=== PATIENT | male | born 1975 | race Caucasian/White ===

== ENCOUNTER 2024-04-20 11:22 | Emergency (ER) | payer OTHER, SELFPAY ==
--- NOTE | ~2024-04-20 | XR_ITS ---
CLINICAL HISTORY: pain s p fall 3 view left wrist Comparison: None Findings: Comminuted impacted intra-articular fracture of the distal radius associated with apex volar angulation and mild dorsal displacement. Chronic fracture of the ulnar styloid process versus accessory ossicle with mild associated degenerative changes. IMPRESSION: Comminuted impacted intra-articular fracture of the distal radius associated with apex volar angulation and mild dorsal displacement. This document has been electronically signed by: Ruben Bourne DO on 04/20/2024 12:33:15
--- NOTE | ~2024-04-20 | XR_ITS ---
CLINICAL HISTORY: Post reduction 2 view left hand Comparison: CR - XR WRIST LT MIN 3V - 04/20/24 12:03 EST Findings: Mildly comminuted fracture of the distal radius with mild impaction and mild posterior angulation. Interval improvement in alignment and position of fracture fragments since the prior study. Chronic nonunited ulnar styloid avulsion fracture. No dislocation. A cast is present. No significant loss of joint space or osteophytes. No erosions. No radiopaque foreign body. IMPRESSION: Mildly comminuted fracture of the distal radius with mild impaction and mild posterior angulation. Interval improvement in alignment and position of fracture fragments since the prior study. This document has been electronically signed by: Ana María Mendes MD on 04/20/2024 14:22:29
--- NOTE | 2024-04-20 11:27 | ED_ITS ---
HPI - Extremity Injury (Upper) General Chief Complaint: Extremity Injury, Upper Stated Complaint: l wrist inj at work Time Seen by Provider: 04/20/24 11:58 History of Present Illness HPI narrative: Patient complains of left wrist pain swelling and deformity after a slip and fall on the ice onto his outstretched hand which happened while he was at work this morning No head strike no neck pain no back pain no numbness no weakness no tingling no other extremity pains, only complaint is left wrist no other injury Related Data Home Medications ?Medication ?Instructions ?Recorded ?Confirmed thiamine HCl (vitamin B1) 100 mg 100 mg PO DAILY 12/29/20 02/16/21 tablet (Vitamin B-1) Previous Rx's ?Medication ?Instructions ?Recorded fluoxetine 40 mg capsule 40 mg PO DAILY 90 days #90 caps 02/04/22 oxycodone 5 mg tablet 5 mg PO Q6H PRN pain #20 tabs 04/20/24 Allergies Allergy/AdvReac Type Severity Reaction Status Date / Time Sulfa (Sulfonamide Allergy Intermediate RASH, hives Verified 04/20/24 11:30 Antibiotics) [SULFA (SULFONAMIDE ANTIBIOTICS)] Sulfamethoxazole Allergy Unknown RASH Uncoded 04/20/24 11:30 PMFSH Past Medical History Source: nursing notes reviewed Medical History Anxiety and depression GERD (gastroesophageal reflux disease) Family History Family History Father Liver failure Diabetes Mother Colon cancer Other Mental health disorder Substance use disorder Social History Social History Housing: House Alcohol intake: current Alcohol intake frequency: a few times a week Patient Tobacco Use Status: Former Tobacco user Tobacco use type: Cigarette Years Smoked: 16 years Advance Directives: No Advance Directives Information Provided: Yes Do you have a plan to hurt others: No Plan Current occupational status: employed Physical Exam Vital Signs: Vital Signs: Last Vital Signs Temp 98 F 04/20/24 11:28 Pulse 70 04/20/24 11:28 Resp 20 04/20/24 12:32 BP 144/90 H 04/20/24 11:28 Pulse Ox 99 04/20/24 11:28 O2 Del Method Room Air 04/20/24 11:28 BMI result Body Mass Index 27.4 General appearance is no acute distress, but uncomfortable Head is normocephalic atraumatic Neck is supple Respiratory no distress Extremities the left wrist is deformed swollen tender, neurovascular intact distal he can flex and extend his fingers Other extremities normal Neuro no focal motor sensory deficits Skin no lacerations or break in the skin Course Course Course Narrative: This is an RME: Additional HPI, ROS, PE not included below will be deferred to primary provider. RME assessment and note performed by: Camille Talamantes PA-C This is a 15-veyz-[id number]-male, with no known medical problems, who is here s/p mechanical fall which occurred just [employer]. Pt slipped and fell at work and landed on his out stretch hand. No LOC, no head strike. Obviously deformed left wrist. Good radial pulse. Plan: Xray left wrist X-ray showed a comminuted impacted intra-articular fracture of distal radius with volar angulation and dorsal displacement Patient was given morphine which relieved his pain, hematoma block was placed and attempt at reduction was tried but alignment was not anatomic after reduction attempt Patient will follow with Orthopedics, I did text Dr. Acuña who said she can see the patient in the office he will call tomorrow morning Medications Administered Discontinued Medications Generic Name Dose Route Start Last Admin Trade Name Shaggyq PRN Reason Stop Dose Admin Acetaminophen 975 mg 04/20/24 11:28 04/20/24 11:33 Acetaminophen 325 Mg Tablet PO 04/20/24 11:29 975 mg ONCE ONE Administration Lidocaine HCl 5 ml 04/20/24 12:20 04/20/24 12:34 Lidocaine Hcl 1 % Mpf 5 Ml Vial SUBCUT 04/20/24 12:21 5 ml ONCE ONE Administration Lidocaine HCl 5 ml 04/20/24 12:20 04/20/24 12:59 Lidocaine Hcl 1 % Mpf 5 Ml Vial SUBCUT 04/20/24 12:21 5 ml ONCE ONE Administration Morphine Sulfate 8 mg 04/20/24 12:19 04/20/24 12:32 Morphine Sulfate 10 Mg/Ml Cartridge IVPUSH 04/20/24 12:20 8 mg ONCE ONE Administration Protocol Morphine Sulfate 4 mg 04/20/24 13:15 04/20/24 13:24 Morphine Sulfate 4 Mg/Ml Cartridge IVPUSH 04/20/24 13:16 4 mg ONCE ONE Administration Protocol Discharge Plan Discharge Clinical Impression: Fracture of wrist Additional Instructions: You broke your wrist in the fall and may need surgery I texted with orthopedist Dr. Acuña who said call the office 1st thing tomorrow and they will get you would soon to further evaluate Return any time for severe uncontrolled pain, fingers changing color loss of sensation in fingers any worse condition or any concerns Apply ice, elevate wrist This is a work-related injury and you can follow with work connection here in the building or whatever workman's comp Clinic your employer send you to Prescriptions: New oxycodone 5 mg tablet 5 mg PO Q6H PRN (Reason: pain) Qty: 20 0RF Rx Instructions: Partial Fill upon patient request. No Action fluoxetine 40 mg capsule 40 mg PO DAILY 90 Days Qty: 90 1RF thiamine HCl (vitamin B1) [Vitamin B-1] 100 mg tablet 100 mg PO DAILY Referrals: Migdalia Acuña MD [Physician] - (Wrist fracture, discussed with Dr. Acuña by a tiger text) Print Language: Lithuanian
[2024-04-20 11:28] VITALS: BP 144/90; PULSE 70; RESP 19; TEMP 36.6; O2SAT 99; BMI 27.4
[2024-04-20] MEDS: Acetaminophen 325 MG TABLET 975 MG PO (11:33)
[2024-04-20 12:32] VITALS: RESP 20
[2024-04-20] MEDS: Morphine Sulfate 10 MG/ML CARTRIDGE 8 MG IVPUSH (12:32)
[2024-04-20] MEDS: Lidocaine HCl 1 % MPF 5 ML VIAL SUBCUT ×2 (12:34→12:59)
[2024-04-20] MEDS: Morphine Sulfate 4 MG/ML CARTRIDGE IVPUSH ×2 (13:24→14:46)
[2024-04-20 15:15] VITALS: BP 00/00; PULSE 65; RESP 20; TEMP -17.7; TEMP 0
== END 2024-04-20 15:15 | disposition home or self-care (01) ==
PROVIDERS: Emergency Provider Emergency Medicine; PCP Nurse Practitioner Family
DX: S62.102A Fracture of unspecified carpal bone, left wrist, initial encounter for closed fracture (principal); M25.532 Pain in left wrist; W00.0XXA Fall on same level due to ice and snow, initial encounter; Y93.89 Activity, other specified; Y92.89 Other specified places as the place of occurrence of the external cause; Y99.0 Civilian activity done for income or pay; Z87.891 Personal history of nicotine dependence; Z79.899 Other long term (current) drug therapy
CPT/HCPCS: 73110; 73130; 96374; 96376; 99283; 99284; J2003; J2270

== ENCOUNTER → 2024-04-20 11:28 | Outpatient (BNV) | payer OTHER, SELFPAY | PROVIDERS: Emergency Provider Emergency Medicine; PCP Nurse Practitioner Family; Visit Provider Radiology Diagnostic Radiology | DX: S52.572A Other intraarticular fracture of lower end of left radius, initial encounter for closed fracture (principal) | CPT/HCPCS: 73110; 73130 ==

== ENCOUNTER 2024-04-21 10:03 | Outpatient (REF) | payer OTHER, SELFPAY ==
--- NOTE | ~2024-04-21 | XR_ITS ---
CLINICAL HISTORY: M25.532 - Pain in left wrist Left wrist three views Comparison: 04/20/2024 Findings: External cast again noted. No change in distal radial fracture alignment. Old ulnar styloid fracture also noted. No new bony abnormalities identified. Impression: Comminuted distal radial fracture, unchanged This document has been electronically signed by: Anthony Sorensen MD on 04/21/2024 19:07:46
== END 2024-04-21 10:04 | disposition home or self-care (01) ==
LOC: HO.HOSX 10:03
PROVIDERS: Visit Provider Orthopaedic Surgery
DX: M25.532 Pain in left wrist (principal); S52.502A Unspecified fracture of the lower end of left radius, initial encounter for closed fracture; W00.0XXA Fall on same level due to ice and snow, initial encounter; Y93.9 Activity, unspecified; Y92.89 Other specified places as the place of occurrence of the external cause; Y99.0 Civilian activity done for income or pay
CPT/HCPCS: 73110; 99202

== ENCOUNTER 2024-04-21 10:58 | Outpatient (AMB) | payer OTHER, SELFPAY ==
[2024-04-21 11:36] VITALS: BMI 27.4
--- NOTE | 2024-04-21 11:36 | MHC.OFFVIS ---
Vital Signs 04/21/24 11:36 Height 5 ft 8 in Weight 180 lb BMI 27.4 Intake Visit Reasons: FC- Left wrist fx WC DOI 04/20/24 Intake Note: Moy 48 yr old right hand dominant male, presents today with his Dimple and daughter Ria, for a new patient visit for his W/C injury to his left wrist DOI 04/20/24. States he has pain swelling and deformity after a slip and fall on the ice onto his outstretched hand. States he was seen in [facility] ED same day where he was told he has a fracture in his wrist. States they attempted to reduce his fracture but not sure if it was successful. Currently states he has pain and swelling. He states he has numbness and tingling. 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 Allergies Sulfa (Sulfonamide Antibiotics) [SULFA (SULFONAMIDE ANTIBIOTICS)] Allergy (Intermediate, Verified 04/21/24 11:41) RASH, hives Sulfamethoxazole Allergy (Unknown, Uncoded 04/21/24 11:41) RASH HPI HPI FC- Left wrist fx WC DOI 04/20/24: Details: Moy is a 48 year old right hand dominant man who presents for a left distal radius fracture, after a fall on ice, DOI: 04/20/24. This is a workplace injury. He was seen in the ED the same day where they attempted a reduction. He complains of pain & swelling in his wrist. He also complains of numbness & tingling in his fingers, which began following the injury. 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 [employer] Medical History Anxiety and depression GERD (gastroesophageal reflux disease) Family History Father Liver failure Diabetes Mother Colon cancer Other Mental health disorder Substance use disorder Social History Housing: House Alcohol intake: current Alcohol intake frequency: a few times a week Patient Tobacco Use Status: Former Tobacco user Tobacco use type: Cigarette Years Smoked: 16 years Current occupational status: employed Review of Systems Const All systems reviewed & are unremarkable except as noted in HPI and below Physical Exam Vital Signs: BMI result Body Mass Index 27.4 Const General: cooperative, healthy appearing and no acute distress Orientation/consciousness: patient oriented x3 HEENT Head: Yes normocephalic and Yes atraumatic Eyes EOM: EOMs intact bilaterally Resp Effort & Inspection: normal respiratory effort and able to speak in complete sentences Cardio Jugular venous distension: no JVD Skin General skin exam: turgor normal Rashes: no rashes Neuro General: patient oriented x3 Extrem Other: Evaluation of Left Upper Extremity: The patient is alert, oriented, and in no acute distress Neuro: Median, Ulnar, Radial nerves motor and sensory intact Vascular: Cap refill brisk ROM: Seen in a Sugar-tong splint today. He found the splint to be uncomfortable. We removed it and placed him in a shorter volar splint for improved comfort. Skin: No lacerations or abrasions or evidence of open fracture General: Swelling and ecchymosis about the left wrist. Radiographs: 3 views of the left wrist were taken and viewed by me today in clinic. They show a new acute distal radius fracture, intra-articular, with ~10 degrees apex volar angulation, S/P closed reduction in the ED. He has evidence of a healed old ulnar styloid fracture. Pre reduction radiographs showed a 22 degree apex volar angular deformity. Psych Appearance: grossly normal Affect: normal affect Attitude: cooperative Assessment & Plan Assessment & Plan (1) Fracture of left distal radius: Code(s): S52.502A - Unspecified fracture of the lower end of left radius, initial encounter for closed fracture Category: Medical Plan Assessment & Plan: 1. Left distal radius fracture, intra-articular With ~10 degrees apex volar angulation S/P reduction in ED From a fall on ice, DOI: 04/20/24 This is a workplace injury I educated him about this condition I discussed operative and non-operative treatment options. I am recommending surgery. The patient would like to proceed with surgery I ordered 8 tablets of 5 mg Oxycodone for pain relief to last until his DOS I discussed activity modifications, he is to lift nothing heavier than a cellphone for the next 6 weeks He should keep his wrist elevated at or above heart level The risks and benefits of operative treatment were discussed with the patient and the patient wishes to proceed with surgery. These risks include, but are not limited to risk of damage to blood vessels, nerves, tendons, infection, recurrence, incomplete relief of preoperative symptoms, persistent pain, possible need for further surgery and the risks associated with regional blocks and anesthesia. The plan is to take the patient to the operating room sometime on 04/27/24 for the following procedures: 1. Left distal radius ORIF, under general All of the preoperative paperwork including the consent was reviewed today. All the patient's questions were answered. The patient understands that they will be contacted by our pad machine operator soon to schedule this procedure He denies Diabetes, blood thinners, asthma, heart, lung, kidney issues Scribed for Migdalia Acuña MD by Du Ledesma, emergency medical technician basic, on 04/21/24 at 11:40 AM, EST. Orders: Orders XR wrist LT min 3V Today M25.532 - Pain in left wrist Medications: New oxycodone Partial Fill upon patient request. 5 mg PO Q8H PRN 8 tab-caps 0RF pain Coding Level of Care Code New Pt Level 4 (81274) Diagnoses Fracture of left distal radius S52.502A
--- OUTSIDE RECORDS SUMMARY | 2024-04-21 12:09 | XMS_ITS | Clinical Summary ---
Author Organization [facility] Address [address] [place] [address] Care Team Providers Care Police Detective Name Role Phone Unavailable Primary Care Provider Unavailabl e Social History Tobacco Use Types Packs/Day Years Used Date Smoking Tobacco: Never Assessed Sex and Gender Information Value Date Recorded Sex Assigned at Not on file Legal Sex Male 2:17 PM EST Gender Identity Not on file Sexual Orientation Not on file Plan of Treatment Health Maintenance Due Date Last Done Comments DTaP,Tdap,and Td Vaccines (1 - Tdap) 1993 Hepatitis B Vaccines (1 of 3 - 19+ 3-dose series) 1993 COVID-19 Vaccine (2023-2 5 season) 2023 Influenza Vaccine (#1) 2023 HIB Vaccines Aged Out No longer eligi ble based on patient's age to complete this topic HPV Vaccines Aged Out No longer eligi ble based on patient's age to complete this topic Hepatitis A Vaccines Aged Out No long er eligible based on patient's age to complete this topic IPV Vaccines Aged Out No longer eligi ble based on patient's age to complete this topic MMR Vaccines Aged Out No longer eligi ble based on patient's age to complete this topic Meningococcal ACWY Vaccine Aged Out N o longer eligible based on patient's age to complete this topic Meningococcal B Vacine Aged Out No lo nger eligible based on patient's age to complete this topic Pneumococcal Vaccine: Pediat rics (0 to 5 Years) and At-Risk Patients (6 to 64 Years) Aged Out No longer eligible b ased on patient's age to complete this topic RSV Immunization Patients Un shirley 20 months Aged Out No longer eligible b ased on patient's age to complete this topic Varicella Vaccines Aged Out No longer eligible based on patient's age to complete this topic Advance Directives Documents on File Type Date Recorded Patient 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 Health Care Decision (hx) 12/17/2020 AD COREEN DIRECTIVE
== END 2024-04-21 12:10 | disposition home or self-care (01) ==
PROVIDERS: PCP Nurse Practitioner Family; Visit Provider Orthopaedic Surgery
DX: S52.502A Unspecified fracture of the lower end of left radius, initial encounter for closed fracture (principal); Z04.2 Encounter for examination and observation following work accident
CPT/HCPCS: 99204

== ENCOUNTER → 2024-04-21 11:00 | Outpatient (BNV) | payer OTHER, SELFPAY | PROVIDERS: Visit Provider Radiology Diagnostic Radiology | DX: S52.502A Unspecified fracture of the lower end of left radius, initial encounter for closed fracture (principal) | CPT/HCPCS: 73110 ==

== ENCOUNTER 2024-04-27 08:58 | Day surgery (SDC) | payer OTHER, SELFPAY ==
--- OUTSIDE RECORDS SUMMARY | 2024-04-21 13:36 | XMS_ITS | Clinical Summary ---
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
[2024-04-27] VITALS (7 sets, daily range): BP systolic 102–120; BP diastolic 51–75; PULSE 69–80; RESP 15–16; TEMP 36.4–36.7; O2SAT 94–97; BMI 29.8
--- NOTE | ~2024-04-27 | FL_ITS ---
EXAMINATION: FL GUIDANCE ONLY HISTORY: Intraop Mini C-Arm guidance COMPARISON: Correlation is made with plain films of the left wrist dated 04/21/2024. TECHNIQUE: Fluoroscopy time: 32.09 seconds. Cumulative Dose: 0.9877 mGy. DAP: 0.0597 mGym2 Images: 3. FINDINGS: Images demonstrate internal fixation of the previously seen comminuted intra-articular fracture of the distal radius with a sideplate and multiple orthopedic screws. 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 FL/FL guidance in OR IMPRESSION: Fluoroscopy during procedure. Please see procedure report for additional information. Electronically signed by: Sascha Khan MD 04/28/2024 11:15 AM [place]
--- NOTE | 2024-04-27 10:03 | P.CONAN_ITS ---
[facility] Active Problems Active Problems: All Active Problems Fracture of left distal radius (Acute) History of alcohol abuse (Acute) Return to work evaluation (Acute) Screening for colon cancer (Acute) Physical exam (Acute) Past Medical History Medical History GERD (gastroesophageal reflux disease) Anxiety and depression Family History Family History Father Liver failure Diabetes Mother Colon cancer Other Mental health disorder Substance use disorder Family history of problems with anesthesia: No Surgical History Surgical History (Updated 04/27/24 @ 09:38 by Mary Gamino RN) H/O colonoscopy Hx of arthroscopy of right knee History of Problems with Anesthesia: No Social History Social History Housing: House Alcohol intake: current Alcohol intake frequency: former alcohol drinker Patient Tobacco Use Status: Former Tobacco user Tobacco use type: Cigarette Years Smoked: 16 years Use of substances other than those prescribed or required for medical reasons: Yes Substance Use Type Other:: last used yesterday Substance Use Frequency: Occasionally Are you DNR?: No Advance Directives: No Advance Directives Information Provided: Yes Current occupational status: employed Meds Allergies Allergy/AdvReac Type Severity Reaction Status Date / Time Sulfa (Sulfonamide Allergy Intermediate RASH, hives Verified 04/27/24 09:37 Antibiotics) [SULFA (SULFONAMIDE ANTIBIOTICS)] Sulfamethoxazole Allergy Unknown RASH Uncoded 04/21/24 11:41 Home Medications ?Medication ?Instructions ?Recorded ?Confirmed ?Last Taken ?Type thiamine HCl (vitamin B1) 100 mg 100 mg PO DAILY 12/29/20 04/27/24 Unknown History tablet (Vitamin B-1) Exam Height,Weight and Vital Signs: Height 5 ft 8 in Weight 89 kg Last Vital Signs Temp 98.1 F 04/27/24 09:54 Pulse 69 04/27/24 09:54 Resp 15 04/27/24 09:54 BP 115/68 04/27/24 09:54 Pulse Ox 97 04/27/24 09:54 O2 Del Method Room Air 04/27/24 09:54 Airway Mallampati Class: II TM Dist: >3cm Neck ROM: Full Assessment and Plan Assessment Anesthesia Assessment: Anesthesia Plan Discussed and Chart Reviewed Final Anesthetic Review Family History of Problems with Anesthesia: No History of Problems with Anesthesia: No NPO: Yes ASA Class: II Final Preanesthetic Review: No Changes in Pt Med Stat, Meds/Allgs Chart Reviewed, Consent Obtained/Reviewed, Anes Risks/Benef Reviewed and DNR Form (If Appl.) Patient Risk: Low Procedure Risk: Low Anesthetic Plan Anesthetic Plan: GA Disposition: Standard PACU
--- NOTE | 2024-04-27 11:22 | P.OP_ITS ---
Operative Note Operative Note Date of Service: 04/27/24 Narrative: Operative Note Narrative: Preop diagnosis: 1. Left Distal radius fracture, comminuted intra-articular 2. Left carpal tunnel syndrome Postop diagnosis: Same Procedure: 1. Left Distal radius fracture open reduction internal fixation, 2 part intra- articular 2. Left carpal tunnel release Surgeon: Migdalia Acuña MD Shipping Receiving Clerk: None Anesthesia: General anesthesia plus regional block Findings: Comminuted intra-articular distal radius fracture Implants: A 3 hole Accu Med volar locking plate, with 4 X 2.3 mm locking pegs/screws, and 3 3.5 mm cortical screws Tourniquet time: 64 minutes EBL: 5.0 ml Specimen: None Drains: None Complications: None Disposition: Brought to the recovery room in stable condition Plan: Follow-up in 10-14 days for wound check, suture removal and postop radiographs The patient will be placed in either a short-arm cast or a volar wrist splint. Encouraged no lifting of anything heavier than a cell phone. Please encourage active and passive range of motion of the digits. Follow-up at 4-5 weeks postop for repeat radiographs. Indications: The patient is a 48 year old man with a left comminuted intra- articular distal radius fracture, and left acute carpal tunnel syndrome . The risks and benefits of operative treatment, including but not limited to risk of damage to blood vessels, nerves, tendons, infection, recurrence, persistent pain or numbness, incomplete resolution of preoperative symptoms, or need for further surgery were discussed with the patient and they wished to proceed with surgery. Procedure: Once consent was obtained patient was brought back to the operating suite and placed in the operating table in a supine position. A regional block was performed by the anesthesia team. Perioperative antibiotics and anesthesia was administered by the anesthesia team. A tourniquet was applied to the proximal aspect of the left upper extremity and the limb was prepped and draped in a standard surgical fashion. The limb was elevated exsanguinated with Esmarch bandage and the tourniquet inflated to 250 mm of mercury for a total tourniquet time of 64 minutes. Once assured that we had a good block, a 2.0 cm longitudinal incision was made centered over the left carpal tunnel. The incision was made through the skin to the subcutaneous tissues using a #15 blade. Dissection was made down to the level of the transverse carpal ligament with care being taken to protect the palmar cutaneous nerve. Once the transverse carpal ligament was clearly visualized, a longitudinal incision was made in the transverse carpal ligament 1st using a #15 blade, then using tenotomy scissors under direct visualization. Care was taken to look for and protect the motor branch of the median nerve when seen in this area. Once satisfied with our carpal tunnel release the wound was irrigated with normal saline. The FluoroScan was used throughout the case to assess our reduction, and facilitate implant placement. A gentle closed reduction was 1st performed on the patient's left distal radius fracture. Was assessed radiographically before proceeding with the reduction internal fixation. I then made an 8 cm longitudinal incision over the distal aspect of the flexor carpi radialis tendon. The incision was made through the skin to the subcutaneous tissue using a 15. Blade. Then carefully dissected down to flexor carpi radialis tendon she tenotomy scissors. The FCR tendon sheath was then incised longitudinally using tenotomy scissors under direct visualization. The FCR tendon was then retracted ulnarly. I then made a longitudinal incision in the volar forearm fascia through the floor of FCR tendon sheath using tenotomy scissors under direct visualization. I identified the interval between the radial artery and the fle xor tendons. This interval was developed further with my index finger, releasing some of the muscular fibers of the flexor pollicis longus. A dull weatlander retractor was then placed. I then created an ulnarly based flap of the pronator quadratus by releasing the radial and distal edges using a 15. Blade. A Gabriel elevator was used to elevate the pronator quadratus from the volar surface of the distal radius. This then revealed to us our distal radius fracture. The fracture was very distal transverse, with an intra-articular split. An open reduction was then performed on our distal radius fracture. I then placed a short narrow 3 hole Accu Med volar locking plate on the volar surface of the distal radius. I placed a single K-wire through the distal aspect of the plate and into the distal radius. This was assessed using fluoroscopic images. I was satisfied with the placement of our plate. I then placed 4 X 2.3 mm locking screws/pegs in the distal aspect of the plate and distal radius by 1st drilling bicortically with a 2.0 mm drill bit, measuring with a depth gauge, and placing the appropriate length locking screws/pegs. The placement of our plate and screws was then assessed again using fluoroscopic images. The once satisfied with the placement of the volar locking plate and screws on the distal aspect of the distal radius, the plate was then reduced to the shaft of the radius. I then placed 3 X 3.5 mm cortical screws to the proximal aspect of the plate and into the shaft of the radius. This was done by 1st drilling bicortically with a 2.8 mm drill bit, measuring with a depth gauge, and placing the appropriate length screw. Final radiographs were then obtained. The DRUJ was assessed and found to be stable on exam. I was satisfied with our reduction and placement of all implants. At this point the wound was irrigated with normal saline. The pronator quadratus was reduced back over the volar locking plate using some 3-0 Vicryl suture material. The tourniquet was then deflated and hemostasis was obtained with a brief period of local pressure and bipolar monopolar electrocautery. The subcutaneous layer was then reapproximated using some 4-0 Vicryl suture, and the skin edges were reapproximated using some 5 0 Prolene suture. The wound was then infiltrated with some 1% lidocaine with epinephrine postop pain control. A sterile dressing and a short dorsal splint allowing for active flexion and extension of the digits was applied. The patient appears to have tolerated the procedure well and with no complications. All digits were well vascularized conclusion of the case.
--- NOTE | 2024-04-27 11:22 | MHC.SHP ---
Pre-Procedural Eval Section A - 24 Hr Update-Section A only Date of Service: 04/27/24 The patient is an INPATIENT: No Changes since office visit: Yes Cold of Flu in the past 2 weeks, Yes New Medical Problems, Yes Changes in Medication and Yes Patient answered all questions The patient has been examined within 24 hours of the surgical procedure. The History & Physical has been completed within 30 days and I have reviewed it.: Yes Section B - Complete if H&P > 30 days Chief Complaint: Unspecified fracture of the lower end of left Allergies: Allergies Allergy/AdvReac Type Severity Reaction Status Date / Time Sulfa (Sulfonamide Allergy Intermediate RASH, hives Verified 04/27/24 09:37 Antibiotics) [SULFA (SULFONAMIDE ANTIBIOTICS)] Sulfamethoxazole Allergy Unknown RASH Uncoded 04/21/24 11:41 Exam Exam Comment: The patient had some numbness and tingling in the median nerve distribution today. Plan Diagnosis/Plan: Change I have reviewed the history and physical and performed a pertinent physical examination on my patient. No changes have occurred unless specified. The risks and benefits of operative treatment were discussed with the patient and the patient wishes to proceed with surgery. These risks include, but are not limited to risk of damage to blood vessels, nerves, tendons, infection, recurrence, incomplete relief of preoperative symptoms, persistent pain, possible need for further surgery and the risks associated with regional blocks and anesthesia. The plan is to take the patient to the operating room today for the following procedures: 1. Left distal radius ORIF 2. Left carpal tunnel release All of the preoperative paperwork including the consent was filled out today. All the patient's questions were answered. Time Spent With Patient Time: Total time managing care of this patient today ____ minutes.
== END 2024-04-27 15:45 | disposition home or self-care (01) ==
PROVIDERS: PCP Nurse Practitioner Family; Visit Provider Orthopaedic Surgery
PROC: (CPT 25608; principal; 2024-04-27 11:00)
DX: S52.572A Other intraarticular fracture of lower end of left radius, initial encounter for closed fracture (principal); M25.532 Pain in left wrist; G56.02 Carpal tunnel syndrome, left upper limb; R20.0 Anesthesia of skin; R20.2 Paresthesia of skin; M25.432 Effusion, left wrist; M21.932 Unspecified acquired deformity of left forearm; W00.0XXA Fall on same level due to ice and snow, initial encounter; Y93.01 Activity, walking, marching and hiking; Y92.69 Other specified industrial and construction area as the place of occurrence of the external cause; Y99.0 Civilian activity done for income or pay; K21.9 Gastro-esophageal reflux disease without esophagitis; F41.9 Anxiety disorder, unspecified; Z79.1 Long term (current) use of non-steroidal anti-inflammatories (NSAID); Z79.899 Other long term (current) drug therapy; Z88.2 Allergy status to sulfonamides; Z87.891 Personal history of nicotine dependence
CPT/HCPCS: 25608; 64721; C1713; J0665; J0690; J1100; J2003; J2250; J2405; J2704; J3010

== ENCOUNTER → 2024-04-27 08:58 | Outpatient (BNV) | payer OTHER, SELFPAY | PROVIDERS: PCP Nurse Practitioner Family; Visit Provider Orthopaedic Surgery | DX: G56.02 Carpal tunnel syndrome, left upper limb (principal); S52.572A Other intraarticular fracture of lower end of left radius, initial encounter for closed fracture | CPT/HCPCS: 25608; 64721 ==

== ENCOUNTER 2024-05-13 11:30 | Outpatient (AMB) | payer OTHER, SELFPAY ==
--- NOTE | 2024-05-13 11:33 | MHC.OFFVIS ---
Intake Visit Reasons: PO LT distal radius ORIF 04/27/24 AR Intake Note: Moy is a 48 year old right hand dominant male who presents today post operatively s/p Left Distal radius fracture ORIF, 2 part intra-articular and left carpal tunnel release DOS: 04/27/24 w/ Dr Acuña. Patient reports that he is doing well, he is feeling a bit claustrophobic in the splint which is making him feel ansty. He has continued pain, has been trying to work on finger ROM. He has continued numbness in the left arm that he believes is from the nerve block. Allergies Sulfa (Sulfonamide Antibiotics) [SULFA (SULFONAMIDE ANTIBIOTICS)] Allergy (Intermediate, Verified 05/13/24 11:34) RASH, hives Sulfamethoxazole Allergy (Unknown, Uncoded 05/13/24 11:34) RASH HPI HPI PO LT distal radius ORIF 04/27/24 AR: Details: Moy is a 48 year old right hand dominant male who presents today post operatively s/p Left Distal radius fracture ORIF, 2 part intra-articular and left carpal tunnel release DOS: 04/27/24 w/ Dr Acuña. Patient reports that he is doing well, he is feeling a bit claustrophobic in the splint which is making him feel ansty. He has continued pain, has been trying to work on finger ROM. He has continued numbness in the left arm that he believes is from the nerve block. [facility] Medical History GERD (gastroesophageal reflux disease) Anxiety and depression Surgical History (Updated 04/27/24 @ 09:38 by Mary Gamino RN) H/O colonoscopy Hx of arthroscopy of right knee Family History Father Liver failure Diabetes Mother Colon cancer Other Mental health disorder Substance use disorder Social History Housing: House Alcohol intake: current Alcohol intake frequency: former alcohol drinker Patient Tobacco Use Status: Former Tobacco user Tobacco use type: Cigarette Years Smoked: 16 years Current occupational status: employed Review of Systems Const All systems reviewed & are unremarkable except as noted in HPI and below Physical Exam Extrem Other: Patient is alert, oriented, and in no acute distress. Neuro: Normal sensation of the tips of all digits of the left hand at this time Vascular: Cap refill brisk Pain: No tenderness to palpation about the left wrist No pain with range of motion of the left hand ROM: Patient is able to flex and extend all digits of the left hand fully Skin: No lacerations or abrasions. General: No ecchymosis, erythema, or evidence of infection. Psych: Appears grossly normal Affect normal Attitude cooperative Office Procedures Casting/Splints 85257-Lhpf/Wrist Cast Application Procedure code (CPT) selection complete Results Reviewed Results Reviewed: X-rays obtained in the office today and independently reviewed by me, Shayne Keys PA-C, demonstrate surgically reduced fracture of the left distal radius with all orthopedic hardware in place and in satisfactory clinical alignment. Assessment & Plan Assessment & Plan (1) Fracture of left distal radius: Code(s): S52.502A - Unspecified fracture of the lower end of left radius, initial encounter for closed fracture Category: Medical Plan 1. Status post left distal radius ORIF DOS 04/27/2024 Patient appears to be recovering well postoperatively Patient is educated about the typical recovery course At this time, patient was placed into a short-arm cast Patient is educated on proper cast care and precautions Sutures removed, Steri-Strips applied Patient will follow-up in 2 weeks with repeat x-rays with cast off, sooner with any acute concerns Orders: Orders XR wrist LT min 3V Today M25.532 - Pain in left wrist Coding Level of Care Code Global (88665) Diagnoses Fracture of left distal radius S52.502A CPT Codes Casting - CPT: 76225-Kqbf/Wrist Cast Application ([id number])
--- OUTSIDE RECORDS SUMMARY | 2024-05-13 13:36 | XMS_ITS | Clinical Summary ---
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
== END 2024-05-13 12:08 | disposition home or self-care (01) ==
LOC: HO.HOS 11:31
PROVIDERS: PCP Nurse Practitioner Family
DX: S52.502A Unspecified fracture of the lower end of left radius, initial encounter for closed fracture (principal)
CPT/HCPCS: 29075; 99024

== ENCOUNTER → 2024-05-13 11:30 | Outpatient (BNV) | payer OTHER, SELFPAY | PROVIDERS: Visit Provider Radiology Diagnostic Radiology | DX: S52.572A Other intraarticular fracture of lower end of left radius, initial encounter for closed fracture (principal) | CPT/HCPCS: 73110 ==

== ENCOUNTER 2024-05-13 12:22 | Outpatient (REF) | payer OTHER, SELFPAY ==
--- NOTE | ~2024-05-13 | XR_ITS ---
EXAMINATION: XR WRIST 3 OR MORE VIEWS LEFT HISTORY: M25.532 - Pain in left wrist COMPARISON: Comparison is made with the prior examination dated 04/21/2024. FINDINGS: Three views of the left wrist are submitted. Osseous mineralization is normal. The patient is status post internal fixation of the previously seen comminuted intra-articular fracture of the distal radius with a side plate and orthopedic screws. Alignment is near-anatomic. Again seen is an old ununited ulnar styloid fracture. The joint spaces are preserved. The soft tissues are unremarkable. XR/XR wrist LT min 3V IMPRESSION: Internal fixation of the previously seen comminuted intra-articular fracture of the distal radius. Electronically signed by: Sascha Khan MD 05/13/2024 02:16 PM EDT
--- OUTSIDE RECORDS SUMMARY | 2024-05-14 15:44 | XMS_ITS | Clinical Summary ---
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
== END 2024-05-13 12:23 | disposition home or self-care (01) ==
LOC: HO.HOSX 12:22
DX: S52.502A Unspecified fracture of the lower end of left radius, initial encounter for closed fracture (principal); M25.532 Pain in left wrist
CPT/HCPCS: 29075; 73110; 99212

== ENCOUNTER 2024-05-29 08:16 | Outpatient (REF) | payer OTHER, SELFPAY ==
--- NOTE | ~2024-05-29 | XR_ITS ---
EXAMINATION: XR WRIST 3 OR MORE VIEWS LEFT HISTORY: M25.532 - Pain in left wrist COMPARISON: Comparison is made with the prior examination dated 05/13/2024. FINDINGS: Three views of the left wrist are submitted. Osseous mineralization is normal. The patient is again noted to be status post internal fixation of a comminuted fracture of the distal radius with a sideplate and multiple orthopedic screws. The fracture lines visible. No significant callus formation is identified. 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 The joint spaces are preserved. The soft tissues are unremarkable. XR/XR wrist LT min 3V IMPRESSION: Internal fixation of a comminuted fracture of the distal left radial metaphysis without change. Electronically signed by: Sascha Khan MD 05/29/2024 01:08 PM EDT
== END 2024-05-29 08:17 | disposition home or self-care (01) ==
LOC: HO.HOSX 08:16
DX: M25.532 Pain in left wrist (principal); S52.502A Unspecified fracture of the lower end of left radius, initial encounter for closed fracture
CPT/HCPCS: 29085; 73110; 99212

== ENCOUNTER 2024-05-29 10:59 | Outpatient (AMB) | payer OTHER, SELFPAY ==
[2024-05-29 11:31] VITALS: BMI 29.8
--- NOTE | 2024-05-29 11:31 | MHC.OFFVIS ---
Vital Signs 05/29/24 11:31 Height 5 ft 8 in Weight 196 lb BMI 29.8 Intake Visit Reasons: PO LT distal radius ORIF 04/27/24 Cast off W XR Intake Note: Moy is a 48 year old right hand dominant male who presents today for a post operative visit about 1 month s/p Left Distal Radius ORIF & CTR 04/27/24. At his last visit sutures were removed & he was placed in a Short Arm Cast. Patient reports he is having soreness and pain on the dorsal and volar aspect of his left hand/wrist. Allergies Sulfa (Sulfonamide Antibiotics) [SULFA (SULFONAMIDE ANTIBIOTICS)] Allergy (Intermediate, Verified 05/29/24 11:32) RASH, hives Sulfamethoxazole Allergy (Unknown, Uncoded 05/29/24 11:32) RASH HPI HPI PO LT distal radius ORIF 04/27/24 Cast off W XR: Details: Moy is a 48 year old right hand dominant male who presents today for a post operative visit about 1 month s/p Left Distal Radius ORIF & CTR 04/27/24. At his last visit sutures were removed & he was placed in a Short Arm Cast. Patient reports he is having soreness and pain on the dorsal and volar aspect of his left hand/wrist. [facility] Medical History GERD (gastroesophageal reflux disease) Anxiety and depression Surgical History (Updated 04/27/24 @ 09:38 by Mary Gamino RN) H/O colonoscopy Hx of arthroscopy of right knee Family History Father Liver failure Diabetes Mother Colon cancer Other Mental health disorder Substance use disorder Social History (Reviewed 04/21/24 @ 11:42 by April Castillo [facility]) Housing: House Alcohol intake: current Alcohol intake frequency: former alcohol drinker Patient Tobacco Use Status: Former Tobacco user Tobacco use type: Cigarette Years Smoked: 16 years Current occupational status: employed Review of Systems Const All systems reviewed & are unremarkable except as noted in HPI and below Physical Exam Vital Signs: BMI result Body Mass Index 29.8 Extrem Other: Patient is alert, oriented, and in no acute distress. Neuro: Normal sensation of the tips of all digits of the left hand at this time Vascular: Cap refill brisk Pain: Mild tenderness to palpation about the left wrist No pain with range of motion of the left hand ROM: Patient is able to flex and extend all digits of the left hand fully Skin: No lacerations or abrasions. General: No ecchymosis, erythema, or evidence of infection. Psych: Appears grossly normal Affect normal Attitude cooperative Office Procedures Casting/Splints 18308-Uorx/Wrist Cast Application Procedure code (CPT) selection complete Results Reviewed Results Reviewed: X-rays obtained in the office today and independently reviewed by me, Shayne Keys PA-C, demonstrate surgically reduced fracture of the left distal radius with all orthopedic hardware in place and in satisfactory clinical alignment, with some very early evidence of interval bony healing. Assessment & Plan Assessment & Plan (1) Fracture of left distal radius: Code(s): S52.502A - Unspecified fracture of the lower end of left radius, initial encounter for closed fracture Category: Medical Plan 1. Status post left distal radius ORIF DOS 04/27/2024 Patient appears to be recovering well postoperatively Patient is educated about the typical recovery course At this time, patient was placed into a short-arm cast for 1 more week due to still having some tenderness to palpation and minimal evidence of healing on x-ray Patient is educated on proper cast care and precautions Sutures removed, Steri-Strips applied Patient will follow-up in 1 weeks with repeat x-rays with cast off, sooner with any acute concerns Orders: Orders XR wrist LT min 3V Today M25.532 - Pain in left wrist Coding Level of Care Code Global (14686) Diagnoses Fracture of left distal radius S52.502A CPT Codes Casting - CPT: 55366-Rplj/Wrist Cast Application ([id number])
== END 2024-05-29 13:52 | disposition home or self-care (01) ==
LOC: HO.HOS 11:00
PROVIDERS: PCP Nurse Practitioner Family
DX: S52.502A Unspecified fracture of the lower end of left radius, initial encounter for closed fracture (principal); Z04.2 Encounter for examination and observation following work accident
CPT/HCPCS: 29085; 99024

== ENCOUNTER → 2024-05-29 11:05 | Outpatient (BNV) | payer OTHER, SELFPAY | PROVIDERS: Visit Provider Radiology Diagnostic Radiology | DX: S52.352A Displaced comminuted fracture of shaft of radius, left arm, initial encounter for closed fracture (principal) | CPT/HCPCS: 73110 ==

== ENCOUNTER 2024-06-05 08:59 | Outpatient (REF) | payer OTHER, SELFPAY ==
--- NOTE | ~2024-06-05 | XR_ITS ---
EXAMINATION: XR WRIST 3 OR MORE VIEWS LEFT HISTORY: M25.532 - Pain in left wrist COMPARISON: Comparison is made with the prior examination dated 05/29/2024. FINDINGS: Three views of the left wrist are submitted. Osseous mineralization is normal. The patient is again noted to be status post internal fixation of a comminuted intra-articular fracture of the distal radius with a sideplate and multiple orthopedic screws. The fracture line remains visible. Again seen is an ununited ulnar styloid fracture. The joint spaces are preserved. The soft tissues are unremarkable. XR/XR wrist LT min 3V IMPRESSION: Internal fixation of a comminuted fracture of the distal radial metaphysis without change. Electronically signed by: Sascha Khan MD 06/05/2024 01:16 PM EDT
--- OUTSIDE RECORDS SUMMARY | 2024-06-05 10:02 | XMS_ITS | Clinical Summary ---
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
== END 2024-06-05 09:00 | disposition home or self-care (01) ==
LOC: HO.HOSX 08:59
DX: M25.532 Pain in left wrist (principal); S52.502A Unspecified fracture of the lower end of left radius, initial encounter for closed fracture
CPT/HCPCS: 73110; 99212

== ENCOUNTER 2024-06-05 08:59 | Outpatient (AMB) | payer OTHER, SELFPAY ==
--- NOTE | 2024-06-05 09:39 | A.OFFVIS_ITS ---
Vital Signs 06/05/24 09:41 Height 5 ft 8 in Weight 185 lb BMI 28.1 Handedness Right Intake Visit Reasons: PO LT distal radius ORIF 04/27/24 w/ cast off Intake Note: Moy is a 48 year old right hand dominant male who presents today post- operatively visit status post Left Distal Radius ORIF & CTR 04/27/[address] Acuña. At his last visit, one week ago, patient was placed on a short-arm cast due to still having some tenderness to palpation and minimal evidence of healing on x-ray. Patient reports today his left wrist is having continued pain on ulnar aspect and he also feels something poking on the radial aspect of left wrist. He states when he was last in office and his cast was being placed on and formed to his hand he felt a pop in the wrist however it did not hurt him at the time. Allergies Sulfa (Sulfonamide Antibiotics) [SULFA (SULFONAMIDE ANTIBIOTICS)] Allergy (Intermediate, Verified 06/05/24 09:41) RASH, hives Sulfamethoxazole Allergy (Unknown, Uncoded 06/05/24 09:41) [facility] Medical History GERD (gastroesophageal reflux disease) Anxiety and depression Surgical History (Updated 04/27/24 @ 09:38 by Mary Gamino RN) H/O colonoscopy Hx of arthroscopy of right knee Family History Father Liver failure Diabetes Mother Colon cancer Other Mental health disorder Substance use disorder Social History Housing: House Alcohol intake: current Alcohol intake frequency: former alcohol drinker Patient Tobacco Use Status: Former Tobacco user Tobacco use type: Cigarette Years Smoked: 16 years Current occupational status: employed Physical Exam Vital Signs: BMI result Body Mass Index 28.1 Assessment & Plan Assessment & Plan (1) Fracture of left distal radius: Code(s): S52.502A - Unspecified fracture of the lower end of left radius, initial encounter for closed fracture Category: Medical Plan History of Present Illness The patient is a 48-year-old male presenting for follow-up on a left distal radius fracture. At a previous visit, while a cast was being applied, he noticed a sensation of movement in the fracture site without accompanying pain. Since then, he reports the main pain has lessened but experiences intermittent pinching sensations, particularly upon sudden movements or pressure. Concerns include possible positional issues with a screw utilized in the fixation. At present, there are no signs of infection or generalized pain apart from the noted sensations. The patient is under continued monitoring for these concerns. Review of Systems - Musculoskeletal: Reports pinching sensation in the left forearm upon movement. Systems reviewed and are negative except as per HPI and below Physical Exam - Musculoskeletal- Left forearm exhibits mild irritation at the incision site; no signs of infection noted. Mild tenderness to palpation about the left distal radius No tenderness to palpation of the incision site Results - Tests: X-rays show maintained alignment; slight concern regarding the position of one distal screw Procedure Plan For the left distal radius fracture follow-up, further evaluation is necessary due to concerns of screw positioning, for which a consultation with Dr. Acuña has been arranged. A Velcro wrist splint will serve as a temporary immobilization device, removable for personal hygiene. The incision site does not show signs of infection, but the patient should note any developing redness. Continued radiographic surveillance is suggested. Patient was informed and verbally consented to the use of an ambient scribe for clinic note documentation during this visit. Discussion Notes During this consultation, we discussed the current status of the left distal radius fracture. I highlighted the significance of the positional concern regarding the fixation screw and the implications it may have. Intermittent pinching sensations reported warrant further review, and as such, I have recommended a referral to Dr. Acuña for expert opinion. I have reviewed with the patient the importance of using the Velcro wrist splint consistently as a cast until further evaluation can be done. The benefits, potential risks, and reasons for choosing this management approach were all addressed. Instructions were provided on how to manage incision care, and I instructed him to report any signs of increased redness or changes in symptoms promptly. Patient Instructions - Wear the Velcro wrist splint like a cast until further instructions. - You can remove the splint for bathing. - Monitor the incision site and notify us if redness or symptoms worsen. - Follow up with Dr. Acuña as scheduled for further evaluation concerning the screw position. - Use soap and water to clean the incision area safely. - Report any new or worsening symptoms immediately. Orders: Orders XR wrist LT min 3V Today M25.532 - Pain in left wrist Coding Level of Care Code Global (01094) Diagnoses Fracture of left distal radius S52.502A
[2024-06-05 09:41] VITALS: BMI 28.1
== END 2024-06-05 10:10 | disposition home or self-care (01) ==
LOC: HO.HOS 09:00
DX: S52.502A Unspecified fracture of the lower end of left radius, initial encounter for closed fracture (principal)
CPT/HCPCS: 99024

== ENCOUNTER → 2024-06-05 09:26 | Outpatient (BNV) | payer OTHER, SELFPAY | PROVIDERS: Visit Provider Radiology Diagnostic Radiology | DX: S52.502A Unspecified fracture of the lower end of left radius, initial encounter for closed fracture (principal) | CPT/HCPCS: 73110 ==

== ENCOUNTER 2024-06-10 09:16 | Outpatient (AMB) | payer OTHER, SELFPAY ==
[2024-06-10 09:37] VITALS: BMI 28.1
--- NOTE | 2024-06-10 09:37 | MHC.OFFVIS ---
Vital Signs 06/10/24 09:37 Height 5 ft 8 in Weight 185 lb BMI 28.1 Intake Visit Reasons: PO LT distal radius ORIF 04/27/24 w/ cast off Intake Note: Moy is a 48 year old right hand dominant male who presents today post-operatively visit status post Left Distal Radius ORIF & CTR 04/27/[address] Acuña. Last visit he was given a hand brace, states he has not tried to bend wrist at all due to feeling scared it will hurt. He also has stiffness in his fingers and is not able to make a fist. Xrays updated in office. Allergies Sulfa (Sulfonamide Antibiotics) [SULFA (SULFONAMIDE ANTIBIOTICS)] Allergy (Intermediate, Verified 06/10/24 09:46) RASH, hives Sulfamethoxazole Allergy (Unknown, Uncoded 06/10/24 09:46) RASH HPI HPI PO LT distal radius ORIF 04/27/24 w/ cast off: Details: Moy is a 48 year old right hand dominant man who returns S/P left distal radius ORIF & carpal tunnel release, DOS: 04/27/24, after a fall on ice, DOI: 04/20/24. He complains of pain & stiffness in his wrist & fingers. He says he has been scared to bend his wrist at all due to anticipated pain. He has not been working on making a fist. He has been wearing his wrist splint as instructed. 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 [facility] Medical History (Updated 06/10/24 @ 09:45 by Du Ledesma) GERD (gastroesophageal reflux disease) Anxiety and depression Surgical History (Updated 04/27/24 @ 09:38 by Mary Gamino RN) H/O colonoscopy Hx of arthroscopy of right knee Family History Father Liver failure Diabetes Mother Colon cancer Other Mental health disorder Substance use disorder Social History Housing: House Alcohol intake: current Alcohol intake frequency: former alcohol drinker Patient Tobacco Use Status: Former Tobacco user Tobacco use type: Cigarette Years Smoked: 16 years Current occupational status: employed Review of Systems Const All systems reviewed & are unremarkable except as noted in HPI and below Physical Exam Vital Signs: BMI result Body Mass Index 28.1 Const General: cooperative, healthy appearing and no acute distress Orientation/consciousness: patient oriented x3 HEENT Head: Yes normocephalic and Yes atraumatic Eyes EOM: EOMs intact bilaterally Resp Effort & Inspection: normal respiratory effort and able to speak in complete sentences Cardio Jugular venous distension: no JVD Skin General skin exam: turgor normal Rashes: no rashes Neuro General: patient oriented x3 Extrem Other: The patient was alert oriented and in no acute distress The incisions are well-healed with no erythema drainage or evidence of infection. He could not actively make a fist today in clinic, initially bring his fingertips to about 4 cm from his palm He had stiffness in all of the fingers including the MCP and PIP joints We worked on ROM exercises for >20 minutes today in clinic Before leaving clinic he could passively bring his fingertips ~1cm from his palm, and hold them actively perhaps 2 cm from his palm Pronation: ~60 degrees Supination: neutral or 0 degrees Sensation is intact Cap refill is brisk Radiographs: 3 views of the left wrist were taken and viewed by me today in clinic. They show a distal radius fracture with status post ORIF with volar locked plating. It looks like he may have had some subsidence of the radial styloid portion of the articular surface. On the lateral it would appear that the screws are all beneath the articular surface. However a CT may be beneficial to be sure.. In looking back at the radiographic sequences it would appear that we see the change in the radial styloid articular position between the intraoperative radiographs and the 1st postop. No appreciable changes after that time. Psych Appearance: grossly normal Affect: normal affect Attitude: cooperative Office Procedures AMB Fracture Care Details: No new fracture care. However he had more than 20 minutes of manual therapy in clinic today [id number] Fracture Billing Code: Fracture Billing Code Assessment & Plan Assessment & Plan (1) Fracture of left distal radius: Code(s): S52.502A - Unspecified fracture of the lower end of left radius, initial encounter for closed fracture Category: Medical (2) Carpal tunnel syndrome of left wrist: Code(s): G56.02 - Carpal tunnel syndrome, left upper limb Category: Medical Plan Assessment & Plan: 1. Left distal radius fracture, S/P ORIF DOS: 04/27/24 From a fall on ice, DOI: 04/20/24 This is a workplace injury 2. Left acute carpal tunnel syndrome, S/P release After a fall, DOI: 04/20/24 3. Left hand stiffness This is a new finding The patient appears to be doing well post-operatively, though he does have stiffness both in the hand and wrist I educated him about the post-operative course, and discussed his radiograph results with him I am concerned there may have been some settling of the radial styloid fragment, and recommend a CT scan to assess the fracture and position of implants I ordered a CT scan of his left wrist, with fine cuts He will continue to wear his velcro wrist splint when out of the house in a crowd or with activities prone to falling . He will remove this at home at rest & to work on ROM exercises, as well as to sleep I discussed activity modifications, he is to lift nothing heavier than a cellphone for the next 4 weeks He will perform ROM exercises at home. We worked on ROM exercises for >20 minutes today in clinic I ordered OT hand therapy to work on finger & wrist ROM & stretching exercises He will follow up when completed for review, this should be a 30 minute appointment Please note that greater than 40 minutes was spent with this patient going over the history, evaluating the patient and radiographs, formulating possible treatment options, discussing them with the patient, and documenting the visit. Scribed for Migdalia Acuña MD by Du Ledesma, medical assistant supervisor, on 06/10/24 at 9:45 AM, EST. Orders: Orders XR wrist LT min 3V Today M25.532 - Pain in left wrist CT wrist LT wo IV con Today S52.502A - Unspecified fracture of the lower end of left radius, initial encounter for closed fracture OT Evaluation and Treatment Today G56.02 - Carpal tunnel syndrome, left upper limb, S52.502A - Unspecified fracture of the lower end of left radius, initial encounter for closed fracture Scribe Plan - Not visible on output: Scribed for Migdalia Acuña MD by Du Ledesma, medical assistant supervisor, on [ ] at [ ], EST. Coding Level of Care Code Est Pt Level 3 (71624) Diagnoses Fracture of left distal radius S52.502A Carpal tunnel syndrome of left wrist G56.02 CPT Codes Fracture Care - Fracture Billing Code: Fracture Billing Code ([id number])
--- OUTSIDE RECORDS SUMMARY | 2024-06-10 09:54 | XMS_ITS | Clinical Summary ---
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
== END 2024-06-10 10:16 | disposition home or self-care (01) ==
LOC: HO.HOS 09:17
PROVIDERS: Visit Provider Orthopaedic Surgery
DX: S52.502A Unspecified fracture of the lower end of left radius, initial encounter for closed fracture (principal); G56.02 Carpal tunnel syndrome, left upper limb
CPT/HCPCS: 99213

== ENCOUNTER → 2024-06-10 09:30 | Outpatient (BNV) | payer OTHER, SELFPAY | PROVIDERS: Visit Provider Radiology Diagnostic Radiology | DX: S52.502A Unspecified fracture of the lower end of left radius, initial encounter for closed fracture (principal) | CPT/HCPCS: 73110 ==

== ENCOUNTER 2024-06-10 09:32 | Outpatient (REF) | payer OTHER, SELFPAY ==
--- NOTE | ~2024-06-10 | XR_ITS ---
EXAMINATION: XR WRIST 3 OR MORE VIEWS LEFT HISTORY: M25.532 - Pain in left wrist COMPARISON: Comparison is made with the prior examination dated 06/05/2024. FINDINGS: Three views of the left wrist are submitted. Osseous mineralization is normal. The patient is again noted to be status post internal fixation of a comminuted fracture of the distal radius with a sideplate and multiple orthopedic screws. The fracture lines remain visible. Again seen is an ununited ulnar styloid fracture. The joint spaces are preserved. The soft tissues are unremarkable. XR/XR wrist LT min 3V IMPRESSION: Internal fixation of a comminuted fracture of the distal radius without significant change. Electronically signed by: Sascha Khan MD 06/10/2024 10:26 AM EDT
--- OUTSIDE RECORDS SUMMARY | 2024-06-11 10:50 | XMS_ITS | Clinical Summary ---
Author Organization 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
== END 2024-06-10 09:33 | disposition home or self-care (01) ==
LOC: HO.HOSX 09:32
PROVIDERS: Visit Provider Orthopaedic Surgery
DX: M25.532 Pain in left wrist (principal); S52.502A Unspecified fracture of the lower end of left radius, initial encounter for closed fracture; G56.02 Carpal tunnel syndrome, left upper limb
CPT/HCPCS: 73110; 97140; 99212

== ENCOUNTER 2024-06-25 07:29 | Outpatient (REF) | payer OTHER, SELFPAY ==
--- NOTE | ~2024-06-25 | CT_ITS ---
CLINICAL HISTORY: S52.502A - Unspecified fracture of the lower end of left radius, initial... --- Add itional Notes or Special Instructions: l dist rad s p orif CT left wrist without contrast Comparison: DX/VA/SR - XR WRIST LT MIN 3V - 06/10/24 09:30 EDT DX/SR - XR WRIST LT MIN 3V - 06/05/24 09:26 EDT Findings: There is osteopenia of the wrist. Fracture of the ulnar styloid. Comminuted fracture of the distal radius with involvement of the articular surface. Status post open reduction internal fixation of the distal radius. The hardware is intact. The fracture lines are evident without significant callus formation. No radiopaque foreign body. Impression: Comminuted fracture of the distal radius without significant callus formation. Intact hardware. This document has been electronically signed by: Lexie Weir MD on 06/25/2024 14:57:57
--- OUTSIDE RECORDS SUMMARY | 2024-06-25 07:32 | XMS_ITS | Clinical Summary ---
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
== END 2024-06-25 07:30 | disposition home or self-care (01) ==
LOC: HO.CT 07:29
PROVIDERS: PCP Nurse Practitioner Family; Visit Provider Orthopaedic Surgery
DX: S52.502A Unspecified fracture of the lower end of left radius, initial encounter for closed fracture (principal)
CPT/HCPCS: 73200

== ENCOUNTER → 2024-06-25 07:30 | Outpatient (BNV) | payer OTHER, SELFPAY | PROVIDERS: PCP Nurse Practitioner Family; Visit Provider Nuclear Medicine | DX: S52.502A Unspecified fracture of the lower end of left radius, initial encounter for closed fracture (principal) | CPT/HCPCS: 73200 ==

== ENCOUNTER 2024-07-28 08:47 | Outpatient (AMB) | payer OTHER, SELFPAY ==
--- NOTE | 2024-07-28 08:52 | MHC.OFFVIS ---
Vital Signs 07/28/24 08:53 Height 5 ft 8 in Weight 185 lb BMI 28.1 Intake Visit Reasons: P/O L DISTAL RADIUS CT scan review Intake Note: Moy, 48 year old right hand dominant male who presents today post-operatively visit status post Left Distal Radius ORIF & CTR 04/27/[address] Acuña. States he had his CT scan done and is here for his review. Allergies Sulfa (Sulfonamide Antibiotics) [SULFA (SULFONAMIDE ANTIBIOTICS)] Allergy (Intermediate, Verified 07/28/24 08:53) RASH, hives Sulfamethoxazole Allergy (Unknown, Uncoded 07/28/24 08:53) RASH HPI HPI P/O L DISTAL RADIUS CT scan review: Details: Moy is a 48 year old right hand dominant man who returns S/P left distal radius ORIF & carpal tunnel release, DOS: 04/27/24, after a fall on ice, DOI: 04/20/24. The patient feels like his sensation in his left hand has been showing significant improvement over the last few weeks. He is happy with his work with OT hand therapy and feels like he is made significant progress in his hand and wrist motion, inability to use his left hand. He says his left wrist is not really hurting him. 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 He should finish this program in about a year. [facility] Medical History (Updated 06/10/24 @ 09:45 by Du Ledesma) GERD (gastroesophageal reflux disease) Anxiety and depression Surgical History H/O colonoscopy Hx of arthroscopy of right knee Family History Father Liver failure Diabetes Mother Colon cancer Other Mental health disorder Substance use disorder Social History (Updated 07/28/24 @ 08:53 by GREY Ambrosio) Housing: House Alcohol intake: current Alcohol intake frequency: former alcohol drinker Patient Tobacco Use Status: Former Tobacco user Tobacco use type: Cigarette Years Smoked: 16 years Current occupational status: employed Current occupation: right hand dominant Physical Exam Vital Signs: BMI result Body Mass Index 28.1 Extrem Other: The patient was alert oriented and in no acute distress. His surgical incisions have healed well and with no evidence of infection. Sensation in the median nerve distribution of his left hand is reported as significantly improved, and not quite normal when compared with the opposite hand. No intrinsic or thenar wasting. He can bring his left hand to a closed fist, though he still has some mild stiffness in the MCP joints. He can bring all of his fingers into full extension. Pronation about 70 degrees Supination about 65 degrees Wrist flexion perhaps 35 degrees Wrist extension perhaps 45 degrees No swelling about the wrist joint, and the wrist is completely nontender. CT scan of left wrist from 06/05/2024: Findings: There is osteopenia of the wrist. Fracture of the ulnar styloid. Comminuted fracture of the distal radius with involvement of the articular surface. Status post open reduction internal fixation of the distal radius. The hardware is intact. The fracture lines are evident without significant callus formation. No radiopaque foreign body. Impression: Comminuted fracture of the distal radius without significant callus formation. Intact hardware. This document has been electronically signed by: Lexie Weir MD on 06/25/2024 14:57:[address] scan and it is report were reviewed by Dr. Acuña today in clinic.. We did see some settling of the large radial styloid fragment resulting in a small step-off at the articular surface. At this time I do not see that any of the distal screws are going to be touching the articular surface of the carpal bones. No need to remove implants at this time. Assessment & Plan Assessment & Plan (1) Carpal tunnel syndrome of left wrist: Code(s): G56.02 - Carpal tunnel syndrome, left upper limb Category: Medical (2) Fracture of left distal radius: Code(s): S52.502A - Unspecified fracture of the lower end of left radius, initial encounter for closed fracture Category: Medical Plan Assessment & Plan: 1. Left distal radius fracture, S/P ORIF DOS: 04/27/24 From a fall on ice, DOI: 04/20/24 This is a workplace injury 2. Left acute carpal tunnel syndrome, S/P release After a fall, DOI: 04/20/24 Showing improvement, but not yet normal sensation 3. Left hand stiffness Showing good improvement. The patient appears to be doing well post-operatively I educated him about the post-operative course, and reviewed his CT scan with him today. I showed him that he does have some joint space narrowing in the radial lunate joint, and that there is a small step-off in the articular surface. Again the patient has no appreciable wrist pain. My caution to him is that he should understand that this was a serious injury to his wrist, and where possible avoid heavy or high impact activities with this wrist. I do not see a reason to remove implants at this time. I did educate the him that if down the road he should start experiencing problems with wrist pain and swelling that he would need to bring that to the attention of me or another orthopedic hand surgeon. He will continue to work with OT on his hand and wrist range of motion. He will continue to work at light duty with a 3 lb weight limit until his follow up with me in 6-8 weeks. In 6-8 weeks we will assess his carpal tunnel syndrome again, his range of motion and overall use of his hand. No radiographs are necessary at that time. He is happy with the current plan. Coding Level of Care Code Est Pt Level 4 (01717) Diagnoses Carpal tunnel syndrome of left wrist G56.02 Fracture of left distal radius S52.502A
[2024-07-28 08:53] VITALS: BMI 28.1
--- OUTSIDE RECORDS SUMMARY | 2024-07-28 09:08 | XMS_ITS | Clinical Summary ---
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
== END 2024-07-28 09:22 | disposition home or self-care (01) ==
LOC: HO.HOS 08:48
PROVIDERS: PCP Nurse Practitioner Family; Visit Provider Orthopaedic Surgery
DX: G56.02 Carpal tunnel syndrome, left upper limb (principal); S52.502A Unspecified fracture of the lower end of left radius, initial encounter for closed fracture
CPT/HCPCS: 99213

== ENCOUNTER → 2024-07-28 08:47 | Outpatient (BNVA) | payer OTHER, SELFPAY | PROVIDERS: PCP Nurse Practitioner Family; Visit Provider Orthopaedic Surgery | DX: G56.02 Carpal tunnel syndrome, left upper limb (principal); S52.502A Unspecified fracture of the lower end of left radius, initial encounter for closed fracture; W00.0XXA Fall on same level due to ice and snow, initial encounter; Y93.9 Activity, unspecified; Y92.9 Unspecified place or not applicable; Y99.9 Unspecified external cause status | CPT/HCPCS: 99212 ==

== ENCOUNTER 2024-08-20 15:33 | Emergency (ER) | payer SELFPAY ==
--- NOTE | ~2024-08-20 | XR_ITS ---
EXAMINATION: XR CHEST CLINICAL INFORMATION: chset pain COMPARISON: None available. TECHNIQUE: 2 views of the chest were obtained. FINDINGS: The cardiac, hilar, and mediastinal contours are normal. The lungs are clear bilaterally. There is no pneumothorax or pleural effusion. There is no focal osseous or soft tissue abnormality. XR/XR chest 2V IMPRESSION: No active pulmonary disease. Electronically signed by: Francisco Best MD 08/20/2024 04:26 PM EDT
--- NOTE | 2024-08-20 15:35 | ECG_ITS ---
Test Reason : CHEST PAIN Blood Pressure : */* mmHG Vent. Rate : 88 BPM Atrial Rate : 88 BPM P-R Int : 134 ms QRS Dur : 86 ms QT Int : 358 ms P-R-T Axes : 36 3 28 degrees QTcB Int : 433 ms Normal sinus rhythm with sinus arrhythmia Normal ECG No previous ECGs available Referred By: Ciara Qiu Electronically Signed By: Vladimir Mclean
[2024-08-20 15:52] VITALS: BP 152/93; PULSE 88; RESP 18; TEMP 36.6; O2SAT 98; BMI 28.9
--- NOTE | 2024-08-20 15:52 | ED.CHESTPAIN ---
HPI - Chest Pain General Chief Complaint: Chest Pain Stated Complaint: CP Time Seen by Provider: 08/20/24 20:09 Source: patient Mode of arrival: ambulatory Limitations: no limitations History of Present Illness ED Provider: HPI narrative: Patient no significant past medical history noticed left-sided chest pain since yesterday evening off and on since 04:00 became constant with no radiation has slight cold sweats with nausea no shortness a breath pain does increase on deep inspiration no cough patient never had similar pain in the past does have family history of cardiac disease in the father Related Data Previous Rx's ?Medication ?Instructions ?Recorded fluoxetine 40 mg capsule 40 mg PO DAILY 90 days #90 caps 02/04/22 ibuprofen 600 mg tablet 600 mg PO Q6-8H PRN pain #20 tabs 04/27/24 Allergies Allergy/AdvReac Type Severity Reaction Status Date / Time Sulfa (Sulfonamide Allergy Intermediate RASH, hives Verified 08/20/24 15:55 Antibiotics) (SULFA (SULFONAMIDE ANTIBIOTICS)) Sulfamethoxazole Allergy Unknown RASH Uncoded 08/20/24 15:55 Review of Systems Review of Systems: Yes all other systems are reviewed and are negative PMFSH Past Medical History Medical History GERD (gastroesophageal reflux disease) Anxiety and depression Surgical History H/O colonoscopy Hx of arthroscopy of right knee Family History Family History Father Liver failure Diabetes Mother Colon cancer Other Mental health disorder Substance use disorder Social History Social History Housing: House Alcohol intake: former Patient Tobacco Use Status: Former Tobacco user Tobacco use type: Cigarette Years Smoked: 16 years Smoked in Last 30 Days: Yes Use of substances other than those prescribed or required for medical reasons: No Substance Use Type: Marijuana Advance Directives: No Advance Directives Information Provided: Yes Do you have a plan to hurt others: No Plan Current occupational status: employed Current occupation: right hand dominant Physical Exam Vital Signs: Vital Signs: Last Vital Signs Temp 98.4 F 08/20/24 22:29 Pulse 68 08/20/24 22:29 Resp 14 08/20/24 22:29 BP 118/78 08/20/24 22:29 Pulse Ox 98 08/20/24 22:29 O2 Del Method Room Air 08/20/24 22:29 BMI result Body Mass Index 28.9 Appearance: Alert. Oriented X3. No acute distress. Eyes: No pallor or icterus ENT: Pharynx normal. Oral Mucosa moist Neck: Normal inspection. Neck supple. CVS: Normal heart rate and rhythm. Pulses normal. Respiratory: No respiratory distress. Equal air entry bilateral, no wheezing/rales/rhonchi Abdomen: Soft and nontender. Bowel sounds are present, no mass palpable, no CVA tenderness Skin: Skin warm and dry. Normal skin color. Normal skin turgor. Extremities: No lower extremity edema. No calf tenderness Neuro: Oriented X 3. No motor deficit. No sensory deficit.No cerebellar signs , cranial nerves II-XII intact Course Course Course Narrative: This is a Rapid Medical Examination (RME) performed by Irene Qiu PA-C in triage. Full HPI, ROS, assessment and treatment plan per primary provider in the Main ED. Hx: 48 yo M here for eval headache, chest pain, nausea without vomiting, dec appetite since yesterday. was driving to [place] today when chest pain worsened, turned around and came to ED. states I have a lot going on . PE/vitals: well appearing Plan: labs, ekg, viral swabs, cxr Medical Decision Making Medical Decision Making [facility] Narrative: Patient with left-sided chest pain with no known coronary risk factor heart score of 1 2 sets of cardiac enzymes negative EKG without any ischemic changes patient advised to follow up with financial reserve clerk/PCP for further evaluation advised to take aspirin daily Differential Diagnosis Differential Diagnoses: The differential diagnosis associated with the presentation includes ACS/noncardiac chest pain/musculoskeletal pain Admission/Observation Consideration of admission/observation: Escalation of care including admission/observation considered Lab Data [facility] Lab Attestation statement: I reviewed the patient's lab results. 08/20/24 16:45 08/20/24 16:45 Labs: Lab Results 08/20/24 08/20/24 Range/Units 16:45 21:17 WBC 12.8 H (4.8-10.8) X10*3/uL RBC 5.36 (4.60-5.80) X10*6/uL Hgb 16.1 (14.0-18.0) g/dl Hct 47.3 (42.0-52.0) % MCV 88.2 (80.0-98.0) fL MCH 30.0 (27.0-33.0) pg MCHC 34.0 (31.0-36.0) g/dl RDW 11.9 (11.0-16.0) % Plt Count 248 (160-400) X10*3/uL MPV 10.0 (9.4-12.4) fL Immature Gran % (Auto) 0.2 (0.0-0.4) % Neut % (Auto) 78.0 H (45-73) % Lymph % (Auto) 17.1 L (20-40) % Kingman % (Auto) 4.5 (2-11) % Eos % (Auto) 0.0 (0-4) % Baso % (Auto) 0.2 (0-2) % Lymph # (Auto) 2.2 (1.2-4.9) X10*3/uL Kingman # (Auto) 0.6 (0.1-1.2) X10*3/uL Eos # (Auto) 0.0 (0.0-0.4) X10*3/uL Baso # (Auto) 0.0 (0.0-0.2) X10*3/uL Abs Immat Gran (auto) 0.03 (0.00-0.03) X10*3/uL Absolute Neuts (auto) 10.0 H (2.0-8.3) x10*3/uL Absolute Nucleated RBC 0.000 (0.0-0.012) X10*3/uL Nucleated RBC % (auto) 0.0 (0.0-0.2) /100WBC Sodium 144 (135-145) mmol/L Potassium 4.1 (3.3-5.1) mmol/L Chloride 107 (96-108) mmol/L Carbon Dioxide 26 (22-29) mmol/L Anion Gap 15 (12-20) BUN 10 (9-16) mg/dL Creatinine 0.76 (0.5-1.4) mg/dL Estim Creat Clear Calc 125.5 Estimated GFR > 60 Random Glucose 132 H (60-115) mg/dL Calcium 9.8 (8.4-10.2) mg/dL Magnesium 2.0 (1.6-2.6) mg/dL Total Bilirubin 0.4 (0.0-1.0) mg/dL AST 26 (5-37) U/L ALT 25 (0-40) U/L Alkaline Phosphatase 58 (39-117) U/L Troponin I High Sens 7.7 7.2 (<3.5-35.0) ng/L Total Protein 8.0 (6.5-8.0) g/dL Albumin 5.2 H (3.5-5.0) g/dL Influenza Type A (PCR) NEGATIVE (Negative) Influenza Type B (PCR) NEGATIVE (Negative) RSV RNA Qual (PCR) NEGATIVE (Negative) SARS-CoV-2 RNA (RT-PCR) NEGATIVE (Negative) Independent Interpretation I performed an independent interpretation of an: EKG (Normal sinus rhythm heart rate 88 beats per minute normal intervals normal axis no acute STT wave changes no acute ischemia) Scores Heart Score History: -0- slightly suspicious ECG: -0- normal Age: -1- >45 - <65 Risk factory: -0- no risk factors known Troponin: -0- < or = normal limit Score: 1 Risk: 1.7% Discharge Plan Discharge Clinical Impression: Chest pain Patient Disposition: Home, Self-Care Instructions: Chest Pain (ED) Additional Instructions: At this time does not clear evidence that you have coronary artery disease as the cause for your chest pain Your blood workup and electrocardiogram are not showing any damage to the heart You need to follow up with financial reserve clerk/PCP for further evaluation including stress test Report to the ER if worsening of the chest pain/shortness a breath Prescriptions: No Action fluoxetine 40 mg capsule 40 mg PO DAILY 90 Days Qty: 90 1RF ibuprofen 600 mg tablet 600 mg PO Q6-8H PRN (Reason: pain) Qty: 20 0RF Referrals: Marlon Chawla MD [Physician, Cardiology] Referral Note: Chest pain for further evaluation Interventions: ED Discharge Assessment Last Done: 08/20/24 22:29 Discharge Date/Time: 08/20/24 22:31 Print Language: Salvadorean
[2024-08-20 16:50] LABS: MANUAL DIFF FLAG NO
[2024-08-20 16:52] LABS: Basophils Percent Auto 0.2 % (0-2); Hematocrit 47.3 % (42.0-52.0); Hemoglobin 16.1 g/dl (14.0-18.0); Imm Gran Abs Auto 0.03 X10*3/uL (0.00-0.03); Imm Gran Pct Auto 0.2 % (0.0-0.4); Lymphocytes Absolute Auto 2.2 X10*3/uL (1.2-4.9); Lymphocytes Percent Auto 17.1 % (20-40); Mean Corpuscular Volume 88.2 fL (80.0-98.0); Monocytes Absolute Auto 0.6 X10*3/uL (0.1-1.2); Monocytes Percent Auto 4.5 % (2-11); Platelet Count 248 X10*3/uL (160-400); Red Blood Count 5.36 X10*6/uL (4.60-5.80); Red Cell Distribution Width 11.9 % (11.0-16.0); White Blood Count 12.8 X10*3/uL (4.8-10.8)
[2024-08-20 17:06] LABS: Alanine Aminotransferase 25 U/L (0-40); Albumin Level 5.2 g/dL (3.5-5.0); Alkaline Phosphatase 58 U/L (39-117); Anion Gap 15 (12-20); Aspartate Amino Transferase 26 U/L (5-37); Bilirubin Total 0.4 mg/dL (0.0-1.0); Blood Urea Nitrogen 10 mg/dL (9-16); Calcium 9.8 mg/dL (8.4-10.2); Carbon Dioxide 26 mmol/L (22-29); Chloride 107 mmol/L (96-108); Creatinine Clr Calc Pharmacy 125.5; Estimated Glomerular Filt Rate > 60; Glucose Random 132 mg/dL (60-115); Potassium 4.1 mmol/L (3.3-5.1); Sodium 144 mmol/L (135-145)
[2024-08-20 17:13] LABS: Troponin-I High Sensitivity 7.7 ng/L (<3.5-35.0)
[2024-08-20 17:28] LABS: Influenza A PCR NEGATIVE (Negative); Influenza B PCR NEGATIVE (Negative); Resp Syncy Virus RNA Qual PCR NEGATIVE (Negative); SARS COV2 PCR INHOUSE NEGATIVE (Negative)
[2024-08-20 20:06] VITALS: BP 132/91; PULSE 60; RESP 10; O2SAT 95
[2024-08-20 21:39] VITALS: BP 162/91; PULSE 54; RESP 16; O2SAT 100
[2024-08-20 21:43] VITALS: BP 118/78; PULSE 68; RESP 14; TEMP 36.9; O2SAT 98
[2024-08-20 21:45] LABS: Troponin-I High Sensitivity 7.2 ng/L (<3.5-35.0)
[2024-08-20 22:29] VITALS: BP 118/78; PULSE 68; RESP 14; TEMP 36.9; O2SAT 98
== END 2024-08-20 22:31 | disposition home or self-care (01) ==
PROVIDERS: Physician Assistant Medical; Emergency Provider Internal Medicine; PCP Nurse Practitioner Family
DX: R07.89 Other chest pain (principal); R61 Generalized hyperhidrosis; R11.0 Nausea; Z87.891 Personal history of nicotine dependence; Z03.818 Encounter for observation for suspected exposure to other biological agents ruled out
CPT/HCPCS: 0241U; 36415; 71046; 80053; 83735; 84484; 85025; 93005; 99283; 99285

== ENCOUNTER → 2024-08-20 15:35 | Outpatient (BNV) | payer MEDICAID, SELFPAY | PROVIDERS: Emergency Provider Internal Medicine; PCP Nurse Practitioner Family; Visit Provider Internal Medicine Cardiovascular Disease | DX: R07.9 Chest pain, unspecified (principal) | CPT/HCPCS: 93010 ==

== ENCOUNTER → 2024-08-20 15:54 | Outpatient (BNV) | payer MEDICAID, SELFPAY | PROVIDERS: Visit Provider Radiology Diagnostic Radiology | DX: R07.9 Chest pain, unspecified (principal) | CPT/HCPCS: 71046 ==

== ENCOUNTER 2024-09-11 07:56 | Outpatient (RCR) | payer OTHER, SELFPAY ==
--- NOTE | 2024-06-19 13:51 | MHC.OT.EP ---
[address] [phone] Occupational Therapy Plan of Care Patient Name: Moy Lagunas Date of Evaluation: 06/18/24 Diagnosis: L Distal Radius fx - ORIF L CTR Pain Location: w/ use of L wrist/ digits Pain Score: 7 Pain Scale Used: Numeric (0 - 10) Aggravating Factors: movements - wrist rotation Alleviating Factors: ibuprofen Assessment: Pt is a 48 yr old R hand dominant male who fractured his L Distal Radius on 04/20 when he slipped on the ice at work he went right to the ED when he fell and had ORIF surgery w/ CTR on 04/27. He presents today w/ reports of paresthesia, stiffness in wrist/ digits, decreased ROM and strength. Pt would benefit from skilled OT therapy to address these deficits and RTW safely. Frequency and Duration: The patient will be seen 2xs a week for 8 weeks Short Term Goals: Pt will be complaint w/ his HEP Pt will increase wrist extension to 50 Pt will increase supination to 70 Community Relations Rep Goals: Pt will use his L hand to carry a coffee cup w/ out difficulty Pt will use his L hand to hold/carry shopping bags (less than 10 lbs) Pt will have 60 of wrist flexion Pt will have 1/10 pain w/ activity Treatment Plan: Therapeutic Exercise Therapeutic Activity Home Exercise Program Splinting Neuro Re-ed Patient Education Desensitization/Sensory Re-ed Edema Control ADL Training Ultrasound NMES Paraffin Fluidotherapy MHP Cold Packs Joint Mobilization Soft Tissue Mobilization Kinesiotaping Other (see comments) Electronically Signed By: Chayito Bach OTR/L Please Sign and return to therapist. Thank you once again for your referral.
--- NOTE | 2024-09-11 08:32 | MHC.OT.DC ---
[address] [phone] F: [phone] Occupational Therapy Discharge Note Patient Name: Moy Lagunas Provider: Migdalia Acuña Diagnosis: L Distal Radius fx - ORIF L CTR Date of Surgery: 04/27/24 Date of Evaluation: 06/18/24 Date of Discharge: Treatments to Date: 21 Cancellations to Date: No Shows to Date: Discharge Status: Achieved Goals Discharge Summary: Pt has met his goals OK to d/ charge Electronically Signed By: Chayito Bach OTR/L Reviewed/agree with student documentation: Therapist: Please Sign and return to therapist, thank you for your referral.
== END 2024-09-11 08:42 | disposition home or self-care (01) ==
LOC: HO.OT 07:56
PROVIDERS: PCP Nurse Practitioner Family; Visit Provider Orthopaedic Surgery
DX: G56.02 Carpal tunnel syndrome, left upper limb (principal); S52.502D Unspecified fracture of the lower end of left radius, subsequent encounter for closed fracture with routine healing; W00.0XXD Fall on same level due to ice and snow, subsequent encounter
CPT/HCPCS: 97110; 97140; 97166; 97530; 97535

== ENCOUNTER 2024-09-15 11:15 | Outpatient (AMB) | payer OTHER, SELFPAY ==
--- NOTE | 2024-09-15 11:37 | A.OFFVIS_ITS ---
Intake Visit Reasons: OV-LT distal radius ORIF 04/27/24 Intake Note: Moy, 48 year old right hand dominant male who presents today post-operatively visit status post Left Distal Radius ORIF & CTR 04/27/[address] Acuña. At his last visit he was advise to start O.T and to continue to work at light duty with a 3 lb weight limit until his follow up with me in 6-8 weeks to re-assess his carpal tunnel syndrome again, his range of motion and overall use of his hand. Patient reports he completed his O.T last week and has had improvement. However he is still limited with extension of the wrist and when applying pressure. Allergies Sulfa (Sulfonamide Antibiotics) (SULFA (SULFONAMIDE ANTIBIOTICS)) Allergy (Intermediate, Verified 09/15/24 11:41) RASH, hives Sulfamethoxazole Allergy (Unknown, Uncoded 09/15/24 11:41) RASH HPI HPI OV-LT distal radius ORIF 04/27/24: Details: Moy is a 48 year old right hand dominant man who returns S/P left distal radius ORIF & carpal tunnel release, DOS: 04/27/24, after a fall on ice, DOI: 04/20/24. He says he is doing well and the sensation in his left hand has been showing significant improvement over the last few weeks. He has completed his course of OT hand therapy and says he feels he improved the function of his hand. He says he still feels somewhat limited in wrist extension, or when applying pressure with this hand such as doing push-ups. 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 He should finish this program in about a year. [facility] Medical History GERD (gastroesophageal reflux disease) Anxiety and depression Surgical History H/O colonoscopy Hx of arthroscopy of right knee Family History Father Liver failure Diabetes Mother Colon cancer Other Mental health disorder Substance use disorder Social History Housing: House Alcohol intake: former Patient Tobacco Use Status: Former Tobacco user Tobacco use type: Cigarette Years Smoked: 16 years Substance Use Type: Marijuana Current occupational status: employed Current occupation: right hand dominant Review of Systems Const All systems reviewed & are unremarkable except as noted in HPI and below Physical Exam Const General: no acute distress and alert Orientation/consciousness: patient oriented x3 Neuro General: patient oriented x3 Extrem Other: Evaluation of Left Upper Extremity: The patient is alert, oriented, and in no acute distress Neuro: Sensation in the median nerve distribution of his left hand is reported as significantly improved, and not quite normal when compared with the opposite hand. No intrinsic or thenar wasting. Vascular: Cap refill brisk ROM: He can bring his left hand to a closed fist today He can bring all of his fingers into full extension. Pronation ~70 degrees Supination ~65 degrees Wrist flexion ~30 degrees Wrist extension ~60 degrees No swelling about the wrist joint, and the wrist is completely nontender. CT scan of left wrist from 06/05/2024: Findings: There is osteopenia of the wrist. Fracture of the ulnar styloid. Comminuted fracture of the distal radius with involvement of the articular surface. Status post open reduction internal fixation of the distal radius. The hardware is intact. The fracture lines are evident without significant callus formation. No radiopaque foreign body. Impression: Comminuted fracture of the distal radius without significant callus formation. Intact hardware. This document has been electronically signed by: Lexie Weir MD on 06/25/2024 14:57:[address] scan and it is report were reviewed by Dr. Acuña in clinic. We did see some settling of the large radial styloid fragment resulting in a small step-off at the articular surface. At this time I do not see that any of the distal screws are going to be touching the articular surface of the carpal bones. No need to remove implants at this time. Psych Appearance: grossly normal Affect: normal affect Attitude: cooperative Assessment & Plan Assessment & Plan (1) Carpal tunnel syndrome of left wrist: Code(s): G56.02 - Carpal tunnel syndrome, left upper limb Category: Medical (2) Fracture of left distal radius: Code(s): S52.502A - Unspecified fracture of the lower end of left radius, initial encounter for closed fracture Category: Medical Plan Assessment & Plan: 1. Left distal radius fracture, S/P ORIF DOS: 04/27/24 From a fall on ice, DOI: 04/20/24 This is a workplace injury 2. Left acute carpal tunnel syndrome, S/P release After a fall, DOI: 04/20/24 Showing improvement, but not yet normal sensation 3. Left hand stiffness Showing good improvement. The patient appears to be doing well post-operatively I educated him about the post-operative course I showed him that he does have some joint space narrowing in the radial lunate joint, and that there is a small step-off in the articular surface. Again the patient has no appreciable wrist pain. My caution to him is that he should understand that this was a serious injury to his wrist, and where possible avoid heavy or high impact activities with this wrist. I do not see a reason to remove implants at this time. I did educate the him that if down the road he should start experiencing problems with wrist pain and swelling that he would need to bring that to the attention of me or another orthopedic hand surgeon. He has completed his course of OT hand therapy. 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 He feels like he should be able to do this. He may contact the clinic for an updated work note at a later date. He will follow up in 2 months to see how he is doing. He may cancel this if he is doing well. Scribed for Migdalia Acuña MD by Du Ldeesma, medical records library professor, on 09/15/24 at 12:05 PM, EST. Coding Level of Care Code Est Pt Level 3 (23891) Diagnoses Carpal tunnel syndrome of left wrist G56.02 Fracture of left distal radius S52.502A
--- OUTSIDE RECORDS SUMMARY | 2024-09-15 12:38 | XMS_ITS | Clinical Summary ---
Author Organization [facility] Address [address] [place] [address] Care Team Providers Care Pediatric Clinical Dietician Name Role Phone Unavailable Primary Care Provider [...] - 19+ 3-dose series) 1993 COVID-19 Vaccine ( - 2023-2 5 season) 2023 Influenza Vaccine (#1) 2024 HIB Vaccines Aged Out No longer [...] 5 Years) and At-Risk Patients (6 to 49 Years) Aged Out No longer eligible b ased on patient's age to complete this topic RSV Immunization Patients Un shirley 20 months Aged Out No longer eligible b ased on patient's age to complete this topic Varicella Vaccines Aged Out No longer eligible based on patient's age to complete this topic Advance Directives Documents on File Type Date Recorded 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
== END 2024-09-15 12:15 | disposition home or self-care (01) ==
LOC: HO.HOS 11:16
PROVIDERS: PCP Nurse Practitioner Family; Visit Provider Orthopaedic Surgery
DX: G56.02 Carpal tunnel syndrome, left upper limb (principal); S52.502A Unspecified fracture of the lower end of left radius, initial encounter for closed fracture
CPT/HCPCS: 99213

== ENCOUNTER → 2024-09-15 11:15 | Outpatient (BNVA) | payer OTHER, SELFPAY | PROVIDERS: PCP Nurse Practitioner Family; Visit Provider Orthopaedic Surgery | DX: G56.02 Carpal tunnel syndrome, left upper limb (principal); S52.502A Unspecified fracture of the lower end of left radius, initial encounter for closed fracture; Z98.890 Other specified postprocedural states | CPT/HCPCS: 99212 ==

== ENCOUNTER 2024-09-18 | Outpatient (REF) | payer SELFPAY ==
--- NOTE | ~2024-09-18 | XR_ITS ---
CLINICAL HISTORY: M25.519 - Pain in unspecified shoulder 3 view left shoulder Comparison: None provided Findings: No acute fracture. No dislocation. No significant degenerative changes. No erosions. Deformity of the left clavicle consistent with healed fractures IMPRESSION: 1. No acute findings. 2. Healed left clavicular fracture. This document has been electronically signed by: Valencia Castellanos MD on 09/18/2024 17:55:47
--- OUTSIDE RECORDS SUMMARY | 2024-09-24 09:02 | XMS_ITS | Clinical Summary ---
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
== END 2024-09-18 00:01 | disposition home or self-care (01) ==
LOC: HO.HOSX
PROVIDERS: Visit Provider Physician Assistant
DX: M12.812 Other specific arthropathies, not elsewhere classified, left shoulder (principal)
CPT/HCPCS: 73030; 99212; J1010; J2003

== ENCOUNTER 2024-09-18 10:22 | Outpatient (AMB) | payer OTHER, SELFPAY ==
--- NOTE | 2024-09-18 10:31 | A.OFFVIS_ITS ---
Vital Signs 09/18/24 10:35 Height 5 ft 8 in Weight 185 lb BMI 28.1 Handedness Right Intake Visit Reasons: New Prob - left shoulder pain Intake Note: Moy is a 48 year old right hand dominant male who presents today for a evaluation of his left shoulder pain. Patient had a work injury in his wrist on 04/20/24 but after the injury he developed left shoulder pain. Patient reports ongoing pain for about 5 months. He states that his pain is on the lateral aspect of the shoulder. Patient finds it difficult to reach his back and lift hit arm. Patient notices that his pain is tolerable today. He mentions that he takes Motrin and tylenol with relief. Allergies Sulfa (Sulfonamide Antibiotics) (SULFA (SULFONAMIDE ANTIBIOTICS)) Allergy (Intermediate, Verified 09/18/24 10:35) RASH, hives Sulfamethoxazole Allergy (Unknown, Uncoded 09/15/24 11:41) RASH HPI HPI New Prob - left shoulder pain: Details: Mr. Lagunas is a 48-year-old right-hand dominant male who presents to the office today for evaluation of left shoulder pain. Patient reports that on 04/20/2024 he sustained a work-related injury and fell resulting in a left distal radius fracture and acute carpal tunnel. He underwent a left distal radius ORIF and carpal tunnel release with Dr. Acuña on 04/27/2024. After his injury the main focus was on the distal radius fracture. However, the patient reports that he has been having continuous left shoulder pain since the injury and since he has recovered from the distal radius fracture he is looking to investigate the cause of his left shoulder pain. During the fall he fell on an outstretched hand and also his elbow. He believes that landing on the elbow jerked his arm upwards into the shoulder. [facility] Medical History GERD (gastroesophageal reflux disease) Anxiety and depression Surgical History (Reviewed 09/15/24 @ 11:42 by April Castillo [facility]) H/O colonoscopy Hx of arthroscopy of right knee Family History Father Liver failure Diabetes Mother Colon cancer Other Mental health disorder Substance use disorder Social History (Updated 09/18/24 @ 10:36 by Hilary Luna) Housing: House Alcohol intake: former Patient Tobacco Use Status: Former Tobacco user Tobacco use type: Cigarette Years Smoked: 16 years Substance Use Type: Marijuana Current occupational status: employed 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 Abduction to 90 degrees. Able to reach T12. Pain with cross-body reach. 5/5 strength with empty can. 5/5 strength with belly press. Severe weakness and pain with lift- off. Negative drop arm. NVI. Office Procedures AMB Joint Injection/Aspiration Joint Injection/Aspiration Primary Site: left shoulder Prep: site was prepped using aseptic technique, ethochloride spray was applied and injection warnings given Injected: 80 mg of, DepoMedrol, with 8 mL of (2% plain lidocaine) and in the subcromial space Approach Used: posterolateral Procedure: The patient tolerated the procedure well, but had some pain with the injection and there was some relief with the local anesthesia Coding 64167 - Large joint Procedure code (CPT) selection complete Assessment & Plan Assessment & Plan (1) Painful arc syndrome of left shoulder: Code(s): M75.102 - Unspecified rotator cuff tear or rupture of left shoulder, not specified as traumatic Category: Medical (2) Rotator cuff arthropathy of left shoulder: Code(s): M12.812 - Other specific arthropathies, not elsewhere classified, left shoulder Category: Medical Plan Mr. Lagunas is a 48-year-old right-hand dominant male who presents to the office today for evaluation of left shoulder pain. Patient reports that on 04/20/2024 he sustained a work-related injury and fell resulting in a left distal radius fracture and acute carpal tunnel. He underwent a left distal radius ORIF and carpal tunnel release with Dr. Acuña on 04/27/2024. After his injury the main focus was on the distal radius fracture. However, the patient reports that he has been having continuous left shoulder pain since the injury and since he has recovered from the distal radius fracture he is looking to investigate the cause of his left shoulder pain. During the fall he fell on an outstretched hand and also his elbow. He believes that landing on the elbow jerked his arm upwards into the shoulder. While in the office today, we discussed the role of cortisone injection and physical therapy. Patient has elected to move forward with both options. The patient was offered a cortisone injection in the left shoulder with 80 mg of DepoMedrol. The patient was explained the risks, benefits, and alternatives to receiving this injection. After receiving consent for the injection, the patient had the procedure done while in the office today. The patient tolerated the procedure well with no complications. Physical therapy order has also been placed while in the office today. Follow-up will be 6-8 weeks, or sooner if needed. Should the patient continue to have pain and limited range of motion consideration of MRI imaging would be warranted at that time. X-rays of the left shoulder which were obtained while in the office today and were reviewed by me, Clementina Gagnon PA-C, revealed no acute fracture or dislo cation. Prior evidence of left clavicle fracture. Orders: Orders XR shoulder LT min 2V Today M25.519 - Pain in unspecified shoulder PT Evaluation and Treatment Today M75.102 - Unspecified rotator cuff tear or rupture of left shoulder, not specified as traumatic Coding Level of Care Code New Pt Level 3 (30596) Diagnoses Painful arc syndrome of left shoulder M75.102 Rotator cuff arthropathy of left shoulder M12.812 CPT Codes Coding - 82652 Large joint: 89531 - Large joint ([id number])
[2024-09-18 10:35] VITALS: BMI 28.1
--- OUTSIDE RECORDS SUMMARY | 2024-09-18 10:44 | XMS_ITS | Clinical Summary ---
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
== END 2024-09-18 11:04 | disposition home or self-care (01) ==
LOC: HO.HOS 10:23
PROVIDERS: PCP Nurse Practitioner Family; Visit Provider Physician Assistant
DX: M75.102 Unspecified rotator cuff tear or rupture of left shoulder, not specified as traumatic (principal); M12.812 Other specific arthropathies, not elsewhere classified, left shoulder
CPT/HCPCS: 20610; 99213

== ENCOUNTER → 2024-09-18 10:24 | Outpatient (BNV) | payer MEDICAID, SELFPAY | PROVIDERS: Visit Provider Specialist | DX: M95.9 Acquired deformity of musculoskeletal system, unspecified (principal) | CPT/HCPCS: 73030 ==

== ENCOUNTER 2024-11-13 08:40 | Outpatient (AMB) | payer OTHER, SELFPAY ==
--- NOTE | 2024-11-13 08:43 | A.OFFVIS_ITS ---
Intake Visit Reasons: OV- left shoulder pain, last injection 09/18/24 Intake Note: Moy is a 48 year old right hand dominant male who presents today for follow up of his Left Shoulder Painful Arc Syndrome & Rotator Cuff Arthropathy. Patient was last evaluated on 09/18/24 were he was given a left shoulder injection and referred to Physical Therapy. Patient reports he was having a hard time to get into physical therapy. He states that the injection did not help him at all. Allergies Sulfa (Sulfonamide Antibiotics) (SULFA (SULFONAMIDE ANTIBIOTICS)) Allergy (Intermediate, Verified 11/13/24 08:49) RASH, hives Sulfamethoxazole Allergy (Unknown, Uncoded 09/15/24 11:41) RASH HPI HPI OV- left shoulder pain, last injection 09/18/24: Details: Mr. Lagunas is a 49-year-old right-hand dominant male who presents to the office today for follow up of left shoulder pain. He was last seen in the office on 09/18/2024 where he was offered a cortisone injection and physical therapy. Patient underwent the cortisone injection and reports that he had some relief for a few hours post injection but then his pain returned. He did attempt to schedule physical therapy however he was working with his employer on his workman's comp claim. Unfortunately, they have took denied his claim and therefore he has had to switch to his health insurance. He is going to be scheduling physical therapy appointments at this time now that he is using his own insurance. 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 Abduction to 80 degrees. Able to reach back pocket. Pain with cross-body reach. 4/5 strength with empty can. 4/5 strength with belly press. Severe weakness and pain with lift- off. Negative drop arm. NVI. Assessment & Plan Assessment & Plan (1) Rotator cuff arthropathy of left shoulder: Code(s): M12.812 - Other specific arthropathies, not elsewhere classified, left shoulder Category: Medical (2) Painful arc syndrome of left shoulder: Code(s): M75.102 - Unspecified rotator cuff tear or rupture of left shoulder, not specified as traumatic Category: Medical Plan Mr. Lagunas is a 49-year-old right-hand dominant male who presents to the office today for follow up of left shoulder pain. He was last seen in the office on 09/18/2024 where he was offered a cortisone injection and physical therapy. Patient underwent the cortisone injection and reports that he had some relief for a few hours post injection but then his pain returned. He did attempt to schedule physical therapy however he was working with his employer on his workman's comp claim. Unfortunately, they have took denied his claim and therefore he has had to switch to his health insurance. He is going to be scheduling physical therapy appointments at this time now that he is using his own insurance. While in the office today, we discussed the importance of beginning physical therapy in which the patient agrees and is eager to attend. He will reach out to make appointments as soon as possible. I instructed him to reach out to me after 4-6 weeks of continuous physical therapy. If his pain and range of motion continues to be concerning the next step would be ordering an MRI to further evaluate the integrity of the shoulder and surrounding structures. Patient understands and accepts. He will follow up via telephone encounter in 4-6 weeks after physical therapy, sooner if needed. Orders: Orders PT Evaluation and Treatment Today M12.812 - Other specific arthropathies, not elsewhere classified, left shoulder, M75.102 - Unspecified rotator cuff tear or rupture of left shoulder, not specified as traumatic Coding Level of Care Code Est Pt Level 3 (57928) Diagnoses Rotator cuff arthropathy of left shoulder M12.812 Painful arc syndrome of left shoulder M75.102
--- OUTSIDE RECORDS SUMMARY | 2024-11-13 09:22 | XMS_ITS | Clinical Summary ---
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
== END 2024-11-13 09:13 | disposition home or self-care (01) ==
LOC: HO.HOS 08:41
PROVIDERS: PCP Nurse Practitioner Family; Visit Provider Physician Assistant
DX: M12.812 Other specific arthropathies, not elsewhere classified, left shoulder (principal); M75.102 Unspecified rotator cuff tear or rupture of left shoulder, not specified as traumatic
CPT/HCPCS: 99213

== ENCOUNTER → 2024-11-13 08:40 | Outpatient (BNVA) | payer OTHER, SELFPAY | PROVIDERS: PCP Nurse Practitioner Family; Visit Provider Physician Assistant | DX: M75.102 Unspecified rotator cuff tear or rupture of left shoulder, not specified as traumatic (principal); M12.812 Other specific arthropathies, not elsewhere classified, left shoulder | CPT/HCPCS: 99212 ==

== ENCOUNTER 2024-11-17 10:20 | Outpatient (AMB) | payer OTHER, SELFPAY ==
--- NOTE | 2024-11-17 10:32 | MHC.OFFVIS ---
Vital Signs 11/17/24 10:44 Height 5 ft 8 in Weight 185 lb BMI 28.1 Intake Visit Reasons: OV-LT distal radius ORIF 04/27/24-2 month follow up Intake Note: Moy, 48 year old right hand dominant male who presents today for his W/C /post-op visit status post Left Distal Radius ORIF & CTR 04/27/[address] Acuña. At his last visit he was given a note to return to work on light duty, now with a 10lb weight limit for the next 3 weeks. Currently states he continues to have pain in wrist when applying pressure and at times feels a pop/clicking noise. States he still has numbness and tingling in left hand. Allergies Sulfa (Sulfonamide Antibiotics) (SULFA (SULFONAMIDE ANTIBIOTICS)) Allergy (Intermediate, Verified 11/17/24 10:50) RASH, hives Sulfamethoxazole Allergy (Unknown, Uncoded 11/17/24 10:50) RASH HPI HPI OV-LT distal radius ORIF 04/27/24-2 month follow up: Details: Moy is a 49 year old right hand dominant man who returns with complaints of left wrist pain. He is S/P left distal radius ORIF & carpal tunnel release, DOS: 04/27/24, after a fall on ice, DOI: 04/20/24. He complains of intermittent pain in his left wrist, primarily when applying pressure with this hand such as doing push-ups or heavy lifting activities. He also feels an occasional popping/catching in his wrist with certain actions with increased ROM and force. He says his left wrist is not really hurting him otherwise He also says he continues to have numbness in his left hand. He says this has stopped improving but has not worsened in the last few months. 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 No intrinsic or thenar wasting. Vascular: Cap refill brisk ROM: He can bring his left hand to a closed fist today He can bring all of his fingers into full extension. Full pronosupination Wrist flexion ~20 degrees Wrist extension ~50 degrees No swelling about the wrist joint, and the wrist is completely nontender. Radiographs: 3 views of the left wrist were taken and viewed by me today in clinic. They show a distal radius fracture S/P ORIF with volar locked plating. Again we see the articular step-off that was 1st seen at the 1st postop visit. Good evidence of interval bony healing, and on the lateral view all screws are outside of the joint. CT scan of left wrist from 06/05/2024: Findings: There is osteopenia of the wrist. Fracture of the ulnar styloid. Comminuted fracture of the distal radius with involvement of the articular surface. Status post open reduction internal fixation of the distal radius. The hardware is intact. The fracture lines are evident without significant callus formation. No radiopaque foreign body. Impression: Comminuted fracture of the distal radius without significant callus formation. Intact hardware. This document has been electronically signed by: Lexie Weir MD on 06/25/2024 14:57:[address] scan and it is report were reviewed by Dr. Acuña in clinic. We did see some settling of the large radial styloid fragment resulting in a small step-off at the articular surface. At this time I do not see that any of the distal screws are going to be touching the articular surface of the carpal bones. No need to remove implants at this time. Psych Appearance: grossly normal Affect: normal affect Attitude: cooperative Assessment & Plan Assessment & Plan (1) Carpal tunnel syndrome of left wrist: Code(s): G56.02 - Carpal tunnel syndrome, left upper limb Category: Medical Plan Assessment & Plan: 1. Left distal radius fracture, S/P ORIF DOS: 04/27/24 From a fall on ice, DOI: 04/20/24 This is a workplace injury 2. Left acute carpal tunnel syndrome, S/P release After a fall, DOI: 04/20/24 Showing improvement, but not yet normal sensation Patient reports an occasional painful clunking sensation in his wrist primarily with heavy activities or lifting activities. I educated him about these conditions I discussed treatment options I recommend activity modification, and he is in agreement. I showed him that he does have some joint space narrowing in the radial lunate joint, and that there is a step-off in the articular surface. My caution to him is that he should understand that this was a serious injury to his wrist, and where possible avoid heavy or high impact activities with this wrist. He should continue to work on ROM exercises at home He should be mindful to avoid any heavy impact activities and be careful with lifting >10lbs where possible. He can follow up prn 3. Left hand stiffness Resolved Scribed for Migdalia Acuña MD by Du Ledesma, medical assistant ob gyn, on 11/17/24 at 11:30 AM, EST. Orders: Orders XR wrist LT min 3V Today M25.532 - Pain in left wrist Coding Level of Care Code Est Pt Level 3 (36832) Diagnoses Carpal tunnel syndrome of left wrist G56.02
[2024-11-17 10:44] VITALS: BMI 28.1
--- OUTSIDE RECORDS SUMMARY | 2024-11-17 13:29 | XMS_ITS | Clinical Summary ---
Author Organization [facility] Address [address] [place] [address] Care Team Providers Care Dirt Bike Racer Name Role Phone Unavailable Primary Care Provider [...] of 3 - 19+ 3-dose series) 1993 Depression Screening 03/04/2024 COVID-19 Vaccine (1 - 2023-2 5 season) 2024 Influenza Vaccine (#1) 2024 Pneumococcal Vaccine: 50+ Ye ars (1 of 1 - PCV) 2024 Zoster Vaccines (1 of 2) 2024 HIB Vaccines Aged Out No longer [...] Documents on File Type Date Recorded Patient Sap Director Expl anation Health Care Decision (hx) 12/17/2020 AD COREEN DIRECTIVE
== END 2024-11-17 11:40 | disposition home or self-care (01) ==
LOC: HO.HOS 10:21
PROVIDERS: PCP Nurse Practitioner Family; Visit Provider Orthopaedic Surgery
DX: G56.02 Carpal tunnel syndrome, left upper limb (principal)
CPT/HCPCS: 99213

== ENCOUNTER → 2024-11-17 10:23 | Outpatient (BNV) | payer OTHER, SELFPAY | PROVIDERS: Visit Provider Radiology Diagnostic Radiology | DX: M25.532 Pain in left wrist (principal) | CPT/HCPCS: 73110 ==

== ENCOUNTER 2024-11-17 10:39 | Outpatient (REF) | payer OTHER, SELFPAY ==
--- NOTE | ~2024-11-17 | XR_ITS ---
EXAMINATION: XR WRIST 3 OR MORE VIEWS LEFT HISTORY: M25.532 - Pain in left wrist COMPARISON: Comparison is made with the prior examination dated 06/10/2024. FINDINGS: Three views of the left wrist are submitted. Osseous mineralization is normal. The patient is again noted to be status post internal fixation of a fracture of the distal radial metaphysis. The fracture lines are less well visualized, consistent with healing. Again seen is a ununited ulnar styloid fracture. The joint spaces are preserved. The soft tissues are unremarkable. XR/XR wrist LT min 3V IMPRESSION: Healing internally fixed fracture of the distal radial metaphysis. Electronically signed by: Sascha Khan MD 11/17/2024 10:31 AM EDT
== END 2024-11-17 10:40 | disposition home or self-care (01) ==
LOC: HO.HOSX 10:39
PROVIDERS: Visit Provider Orthopaedic Surgery
DX: G56.02 Carpal tunnel syndrome, left upper limb (principal)
CPT/HCPCS: 73110; 99212

== ENCOUNTER 2024-11-18 08:36 | Outpatient (AMB) | payer OTHER, SELFPAY ==
--- NOTE | 2024-11-18 08:32 | AM.OFFWIN_ITS ---
Intake Vital Signs 11/18/24 08:41 Height 5 ft 8 in Weight 189 lb BMI 28.7 BP 124/88 Blood Pressure Location Lt brachial Position Sitting Respiration 16 Pulse 81 Pulse Source Pulse Oximeter Temp 98.6 F Temp Source Oral Pulse Oximetry (%) 97 Oxygen Delivery Method Room Air Intake Visit Reasons: EP Headache, trembles, confusion, stomach pains Patient Tobacco Use Status: Former Tobacco user Allergies Sulfa (Sulfonamide Antibiotics) (SULFA (SULFONAMIDE ANTIBIOTICS)) Allergy (Intermediate, Verified 11/17/24 10:50) RASH, hives Sulfamethoxazole Allergy (Unknown, Uncoded 11/17/24 10:50) RASH HPI HPI Comments History of Present Illness Details History of Present Illness - The patient is a 49-year-old male pres enting with tremors, headache, nausea, and possible marijuana withdrawal symptoms for a few days. - The patient reports experiencing inten se body tremors and shaking, which have occurred four times over the past few months. Reports both hands and feet are cold all the time. - He describes associated symptoms of he adache, nausea, confusion, and light sensitivity. - The patient also reports abdominal dis comfort and diarrhea, with no blood or black stools. - He has a history of visiting the [facility] room four months ago for similar symptoms, where a cardiac workup showed normal heart function. - The patient denies a personal history of diabetes but notes his father had diabetes. - He reports cessation of alcohol consum ption two years and two months ago and denies any street drug use. - The patient mentions recent marijuana use and acknowledges potential withdrawal symptoms. - He experiences fatigue, cold extremiti es, and a lack of appetite, with the last meal consumed at 6 PM the previous day. Physical Exam General: Cooperative, healthy appearing, comfortable, no acute distress and well developed Orientation: Patient oriented x3 Limitations: No limitations Head: Normal to inspection Ears: Hearing grossly normal bilaterally Nose: Normal External nose present Face and sinus: Normal facial exam Eyes: Appearance normal, both eyes and all related structures, but reports light sensitivity Neck: Normal visual inspection and Yes full ROM Respiratory: Normal respiratory effort and able to speak in complete sentences. Clear to auscultation throughout. Cardiac: regular rate and rhythem, normal s1 and s2 GI: normoactive BS, soft, negative mcburneys, negative murphys, slight TTP epigastric and LUQ Skin: No rashes or lesions noted Neuro: Patient oriented x3, but reports confusion and tremors Extremities: Normal to inspection [facility] Medical History GERD (gastroesophageal reflux disease) Anxiety and depression Surgical History H/O colonoscopy Hx of arthroscopy of right knee Family History Father Liver failure Diabetes Mother Colon cancer Other Mental health disorder Substance use disorder Social History Housing: House Alcohol intake: former Patient Tobacco Use Status: Former Tobacco user Tobacco use type: Cigarette Years Smoked: 16 years Substance Use Type: Marijuana Current occupational status: employed 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 Review of Systems Const All systems reviewed & are unremarkable except as noted in HPI and below Physical Exam Vital Signs: Last Vital Signs Temp 98.6 F 11/18/24 08:41 Pulse 81 11/18/24 08:41 Resp 16 11/18/24 08:41 BP 124/88 11/18/24 08:41 Pulse Ox 97 11/18/24 08:41 Oxygen Delivery Method Room Air 11/18/24 08:41 BMI result Body Mass Index 28.7 Results AMB Hemoglobin A1c AMB Hemoglobin A1c 5.6 % Last Edit by Rod Branham CMA on 11/18/24 09: 36 AMB Random Glucose (hemocue) AMB Random Glucose (hemocue) 144 mg/dL Last Edit by Rod Branham CMA o n 11/18/24 09:37 Results Reviewed Results Reviewed: Laboratory Last Values Random Glu (Clinic) 144 mg/dL 11/18/24 09:35 Hgb A1c (Clinic) 5.6 % (4.0-6.0) 11/18/24 09:35 Assessment & Plan Assessment & Plan (1) Nausea: Code(s): R11.0 - Nausea Plan: Plan Patient was informed and verbally consented to the use of an ambient scribe for clinic note documentation during this visit. - Fasting glucose was 156, A1c today is 5.6% - Was going to order CBC and CMP but patient declined - viral nasal swab sent - Consideration of marijuana withdrawal as a contributing factor to tremors. - Will send zofran for nausea, recommended OTC meds to manage symptoms. - Pt trembling and not feeling well, would like to go to ED, called in Expect to [facility] [place] [facility] ED. Orders: Orders AMB Hemoglobin A1c Today Z13.9 - Encounter for screening, unspecified AMB Random Glucose (hemocue) Today Z13.9 - Encounter for screening, unspecified Resp Pathogen Panel - [facility] [place] Today J06.9 - Acute upper respiratory infection, unspecified Medications: New ondansetron 4 mg PO Q8H PRN 10 tabs 0RF nausea and vomiting Coding Level of Care Code New Pt Level 5 (52994) Diagnoses Nausea R11.0
[2024-11-18 08:41] VITALS: BP 124/88; PULSE 81; RESP 16; TEMP 37; O2SAT 97; BMI 28.7
--- OUTSIDE RECORDS SUMMARY | 2024-11-18 09:52 | XMS_ITS | Clinical Summary ---
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
== END 2024-11-18 10:31 | disposition home or self-care (01) ==
PROVIDERS: Visit Provider Physician Assistant
DX: R11.0 Nausea (principal); Z13.9 Encounter for screening, unspecified

== ENCOUNTER 2024-11-18 08:36 | Outpatient (REF) | payer OTHER, SELFPAY ==
[2024-11-18 16:07] LABS: Chlamydia pneumoniae PCR Not Detected (Not Detect.); Coronavirus 229E PCR Not Detected (Not Detect.); Coronavirus HKU1 PCR Not Detected (Not Detect.); Coronavirus NL63 PCR Not Detected (Not Detect.); Coronavirus OC43 PCR Not Detected (Not Detect.); RSV PCR Not Detected (Not Detect.); Rhino/Enterovirus PCR Not Detected (Not Detect.)
[2024-11-18 16:11] LABS: Influenza A H1 PCR Not Detected (Not Detect.); Influenza A H1-2009 PCR Not Detected (Not Detect.); Influenza A H3 PCR Not Detected (Not Detect.); SARS-CoV-2 PCR Not Detected (Not Detect.)
== END 2024-11-18 08:37 | disposition home or self-care (01) ==
LOC: HO.LAB 08:36
PROVIDERS: Physician Assistant
DX: R11.0 Nausea (principal); R25.1 Tremor, unspecified; J06.9 Acute upper respiratory infection, unspecified; Z13.89 Encounter for screening for other disorder; Z87.891 Personal history of nicotine dependence
CPT/HCPCS: 82948; 83036; 87633; 99202

== ENCOUNTER 2024-11-18 10:02 | Emergency (ER) | payer OTHER, SELFPAY ==
[2024-11-18 10:19] VITALS: BP 168/95; PULSE 80; RESP 16; TEMP 36.5; O2SAT 97; BMI 28.9
[2024-11-18 10:38] VITALS: PULSE 69; RESP 16; O2SAT 96
[2024-11-18 10:39] LABS: MANUAL DIFF FLAG NO
[2024-11-18 10:42] LABS: Hematocrit 47.6 % (42.0-52.0); Hemoglobin 16.5 g/dl (14.0-18.0); Imm Gran Abs Auto 0.03 X10*3/uL (0.00-0.03); Imm Gran Pct Auto 0.2 % (0.0-0.4); Lymphocytes Absolute Auto 2.4 X10*3/uL (1.2-4.9); Mean Corpuscular HGB Conc 34.7 g/dl (31.0-36.0); Mean Corpuscular Hemoglobin 30.9 pg (27.0-33.0); Mean Corpuscular Volume 89.1 fL (80.0-98.0); NRBC Abs Auto 0.000 X10*3/uL (0.0-0.012); NRBC Pct Auto 0.0 /100WBC (0.0-0.2); Platelet Count 222 X10*3/uL (160-400); Red Blood Count 5.34 X10*6/uL (4.60-5.80); White Blood Count 12.4 X10*3/uL (4.8-10.8)
--- NOTE | 2024-11-18 10:44 | ED_ITS ---
HPI - General Adult General Chief complaint: General Medical Stated complaint: multiple symptoms Time Seen by Provider: 11/18/24 10:44 Source: patient Mode of arrival: ambulatory Limitations: no limitations History of Present Illness ED Provider: HPI narrative: 49-year-old male otherwise healthy, prior history of alcohol use not in the past 2 years, occasional marijuana, presenting with multiple complaints, anxious affect, feeling cold in upper and lower extremities, has been having a headache for months, photosensitivity, up until 2 months ago was exercising now started new job, studying and not exercising. Up until 1 year ago was on fluoxetine for anxiety and depression but states has not improved and so he called turkey quit the med. Related Data Previous Rx's ?Medication ?Instructions ?Recorded ibuprofen 600 mg tablet 600 mg PO Q6-8H PRN pain #20 tabs 04/27/24 ondansetron 4 mg disintegrating 4 mg PO Q8H PRN nausea and 11/18/24 tablet vomiting #10 tabs Allergies Allergy/AdvReac Type Severity Reaction Status Date / Time Sulfa (Sulfonamide Allergy Intermediate RASH, hives Verified 11/18/24 10:22 Antibiotics) (SULFA (SULFONAMIDE ANTIBIOTICS)) Sulfamethoxazole Allergy Unknown RASH Uncoded 11/17/24 10:50 Review of Systems 2 Constitutional: Constitutional: Reports as per [facility] Past Medical History Medical History GERD (gastroesophageal reflux disease) Anxiety and depression Surgical History H/O colonoscopy Hx of arthroscopy of right knee Family History Family History Father Liver failure Diabetes Mother Colon cancer Other Mental health disorder Substance use disorder Social History Social History Housing: House Alcohol intake: former Patient Tobacco Use Status: Former Tobacco user Tobacco use type: Cigarette Years Smoked: 16 years Smoked in Last 30 Days: No Substance Use Type: Marijuana Advance Directives: No Advance Directives Information Provided: No Current occupational status: employed 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 Blokifying/ right hand dominant Physical Exam ED Vital Signs: Vital Signs - 24 hr 11/18/24 10:19 11/18/24 10:38 Temperature 97.7 F Pulse Rate 80 69 Respiratory Rate 16 16 Blood Pressure 168/95 H Pulse Oximetry 97 96 Oxygen Delivery Method Room Air Room Air BMI result Body Mass Index 28.9 Const Other: * Gen: ?Overall well-appearing patient, anxious affect * HEENT: PERRLA, EOMI, MMM, * Neck: Supple, no LAD * CV: RRR, no obvious murmurs appreciated * Resp: ?No wheezing rales rhonchi no stridor moving air well * Abd: ?Bowel sounds are present, no tenderness no rebound no rigidity * MSK: FROM, strength 5/5 all extremities * Skin: Warm, dry, intact, * Neuro: ?Alert and oriented x3, moving upper and lower extremities symmetrically, no obvious facial asymmetry noted Medications Administered Discontinued Medications Generic Name Dose Route Start Last Admin Trade Name Freq PRN Reason Stop Dose Admin Diazepam 2 mg 11/18/24 11:17 11/18/24 11:55 Diazepam 2 Mg Tablet PO 11/18/24 11:18 2 mg ONCE ONE Administration Medical Decision Making Medical Decision Making [facility] Narrative: Overall well-appearing anxious male was seen for very similar presentation in August had a negative workup at that point, considerations for workup as below, with negative workup anticipating discharge when recommendations to be on medications for anxiety, I also spoke to him quite a bit regarding exercise I think that is the major change in his life along with starting in the evening that is bringing these symptoms on. Differential Diagnosis Differential Diagnoses: The differential diagnosis associated with the presentation includes (Anxiety, ACS, viral syndrome, intoxication, thyroid issues) Admission/Observation Consideration of admission/observation: Escalation of care including admission/observation considered Lab Data [facility] Lab Attestation statement: I reviewed the patient's lab results. 11/18/24 10:35 11/18/24 10:35 Labs: Lab Results 11/18/24 Range/Units 10:35 WBC 12.4 H (4.8-10.8) X10*3/uL RBC 5.34 (4.60-5.80) X10*6/uL Hgb 16.5 (14.0-18.0) g/dl Hct 47.6 (42.0-52.0) % MCV 89.1 (80.0-98.0) fL MCH 30.9 (27.0-33.0) pg MCHC 34.7 (31.0-36.0) g/dl RDW 12.4 (11.0-16.0) % Plt Count 222 (160-400) X10*3/uL MPV 9.9 (9.4-12.4) fL Immature Gran % (Auto) 0.2 (0.0-0.4) % Neut % (Auto) 75.8 H (45-73) % Lymph % (Auto) 19.0 L (20-40) % [place] % (Auto) 4.7 (2-11) % Eos % (Auto) 0.0 (0-4) % Baso % (Auto) 0.3 (0-2) % Lymph # (Auto) 2.4 (1.2-4.9) X10*3/uL [place] # (Auto) 0.6 (0.1-1.2) X10*3/uL Eos # (Auto) 0.0 (0.0-0.4) X10*3/uL Baso # (Auto) 0.0 (0.0-0.2) X10*3/uL Abs Immat Gran (auto) 0.03 (0.00-0.03) X10*3/uL Absolute Neuts (auto) 9.4 H (2.0-8.3) x10*3/uL Absolute Nucleated RBC 0.000 (0.0-0.012) X10*3/uL Nucleated RBC % (auto) 0.0 (0.0-0.2) /100WBC Sodium 140 (135-145) mmol/L Potassium 4.5 (3.3-5.1) mmol/L Chloride 106 (96-108) mmol/L Carbon Dioxide 26 (22-29) mmol/L Anion Gap 13 (12-20) BUN 8 L (9-16) mg/dL Creatinine 0.91 (0.5-1.4) mg/dL Estim Creat Clear Calc 103.7 Estimated GFR > 60 Random Glucose 163 H (60-115) mg/dL Calcium 9.4 (8.4-10.2) mg/dL Total Bilirubin 0.7 (0.0-1.0) mg/dL AST 21 (5-37) U/L ALT 25 (0-40) U/L Alkaline Phosphatase 55 (39-117) U/L Total Protein 8.2 H (6.5-8.0) g/dL Albumin 5.0 (3.5-5.0) g/dL Independent Interpretation I performed an independent interpretation of an: EKG (66 beats per minute otherwise normal ECG without dysrhythmia, AV fred blocks or ST-T changes to suspect underlying ACS, my independent interpretation) Discharge Plan Discharge Clinical Impression: Multiple complaints, Anxiety reaction Patient Disposition: Home, Self-Care Additional Instructions: I recommend you get in touch with the PCP and get back on medication for anxiety, also highly recommend you restart your exercise routine, your workup included blood work, EKG, physical exam vital signs all reassuring, your blood pressure was somewhat elevated but this is to be expected in somebody who is nervous I would not worry about it at this time, instead concentrate on making sure you get enough sleep, stay hydrated, and begin exercising In the other issues or concerns do not hesitate to come back to the ER You also had a flu panel done, for some reason somebody ordered entire flu panel that is going to take multiple hours to result, if it comes back positive you will get a phone call. Prescriptions: No Action ibuprofen 600 mg tablet 600 mg PO Q6-8H PRN (Reason: pain) Qty: 20 0RF ondansetron 4 mg tablet,disintegrating 4 mg PO Q8H PRN (Reason: nausea and vomiting) Qty: 10 0RF Print Language: Danish
--- NOTE | 2024-11-18 10:47 | PC.NURSE ---
Addendum entered by Mary aMyer RN 11/18/24 10:50: Patient is a 49-year-old male presenting with tremors, headache, nausea, and possible marijuana withdrawal symptoms for several months. The patient reports experiencing intense body tremors and shaking, which have occurred four times over the past few months. Reports both hands and feet are cold all the time. He describes associated symptoms of headache, nausea, confusion, and light sensitivity.The patient also reports abdominal discomfort and diarrhea, with no blood or black stools. Patient alert and oriented but anxious. Lungs clear bilat. Respirations even and non-labored. Abdomen soft, non-tender with positive bowel sounds. No LE edema noted. Original Note: Medical History GERD (gastroesophageal reflux disease) Anxiety an
[2024-11-18 10:58] LABS: Alanine Aminotransferase 25 U/L (0-40); Albumin Level 5.0 g/dL (3.5-5.0); Alkaline Phosphatase 55 U/L (39-117); Anion Gap 13 (12-20); Aspartate Amino Transferase 21 U/L (5-37); Blood Urea Nitrogen 8 mg/dL (9-16); Calcium 9.4 mg/dL (8.4-10.2); Carbon Dioxide 26 mmol/L (22-29); Chloride 106 mmol/L (96-108); Creatinine Clr Calc Pharmacy 103.7; Estimated Glomerular Filt Rate > 60; Potassium 4.5 mmol/L (3.3-5.1); Sodium 140 mmol/L (135-145); Total Protein 8.2 g/dL (6.5-8.0)
--- NOTE | 2024-11-18 11:17 | ECG_ITS ---
Test Reason : anxious Blood Pressure : */* mmHG Vent. Rate : 66 BPM Atrial Rate : 66 BPM P-R Int : 138 ms QRS Dur : 100 ms QT Int : 410 ms P-R-T Axes : 21 -8 14 degrees QTcB Int : 429 ms Normal sinus rhythm Normal ECG When compared with ECG of 20-Aug-2024 15:44, T wave amplitude has decreased in Anterior leads Referred By: Andreas Ahumada Electronically Signed By: TEE DESAI
[2024-11-18 13:03] VITALS: BP 123/68; PULSE 69; RESP 16; TEMP 37.1; O2SAT 96
== END 2024-11-18 13:05 | disposition home or self-care (01) ==
PROVIDERS: Emergency Provider Emergency Medicine
DX: F41.1 Generalized anxiety disorder (principal); R51.9 Headache, unspecified; L56.8 Other specified acute skin changes due to ultraviolet radiation; Z87.891 Personal history of nicotine dependence; Z79.899 Other long term (current) drug therapy
CPT/HCPCS: 36415; 80053; 84443; 85025; 93005; 99283; 99284

== ENCOUNTER → 2024-11-18 11:17 | Outpatient (BNV) | payer OTHER, SELFPAY | PROVIDERS: Emergency Provider Emergency Medicine; Visit Provider Internal Medicine | DX: F41.9 Anxiety disorder, unspecified (principal) | CPT/HCPCS: 93010 ==

== ENCOUNTER 2024-12-18 08:49 | Outpatient (AMB) | payer OTHER, SELFPAY ==
[2024-12-18 08:52] VITALS: BP 140/87; PULSE 72; TEMP 36.4; O2SAT 95; BMI 28.4
--- NOTE | 2024-12-18 08:52 | A.OFFPC_ITS ---
Vital Signs 12/18/24 08:52 12/18/24 09:41 Height 5 ft 8 in Weight 187 lb BMI 28.4 BP 140/87 H 127/88 Blood Pressure Location Lt brachial Rt brachial Position Sitting Sitting Pulse 72 73 Pulse Source Pulse Oximeter Monitor Temp 97.5 F Temp Source Temporal Artery Scan Pulse Oximetry (%) 95 Oxygen Delivery Method Room Air Intake Visit Reasons: Establish Care Intake Note: [place] [facility] [place] An[place]. Ear ringing x yrs, left ear feels clogged Accompanied by: Self / Same As Patient Allergies Sulfa (Sulfonamide Antibiotics) (SULFA (SULFONAMIDE ANTIBIOTICS)) Allergy (Intermediate, Verified 12/18/24 09:10) RASH, hives Medication List - Last Reconciled 12/18/24 by Gabrielle Amador PA-C No Known Home Meds Tobacco use date assessed: 12/18/24 Dental Screening Dental Screen Date: 12/18/24 Did you have a dental visit in the last 12 months?: Yes Was dental information given to patient?: Patient has dentist HPI Establish Care HPI Details The patient is a 49-year-old male presenting for a comprehensive physical examination and management of anxiety and depression. The patient reports experiencing significant anxiety, which has led to two emergency room visits due to concerns of a heart attack, although no cardiac issues were found. He has been using Valium provided by his niece to manage his anxiety symptoms, which he finds helpful. The patient has been advised to consult with a psychiatrist for further evaluation and management. The patient has a history of depression, although he reports it as less severe than his anxiety. He denies any suicidal ideation and attributes his mental health challenges to stressors such as school and financial burdens. The patient has a history of a prostate infection, which was previously diagnosed and treated. He reports tinnitus with varying pitch and intermittent dizziness, which he associates with a past head injury sustained in his 20s. The patient has been referred for a hearing evaluation and a possible thyroid nodule was noted during examination, warranting further investigation with an ultrasound. The patient has a family history of colon cancer on his father's side and diabetes mellitus type 2 on his father's side. He has undergone a colonoscopy in the past, but the exact timing is unclear. The patient has a history of alcohol use disorder, which is currently in remission for over two years. He previously worked in the [employer] industry, which contributed to his alcohol use, but he has since changed careers. 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 - Family: with a 12-year-old sandra cristina - Substance Use: History of alcohol use disorder, in remission for over two years - Education: Currently attending school [employer] [facility] Medical History (Updated 12/18/24 @ 10:00 by Gabrielle Amador PA-C) Alcohol use disorder in remission History of head injury Family history of diabetes mellitus Family history of colon cancer History of prostatitis Depression Annual physical exam Dizziness Thyroid nodule Ringing in ears Anxiety GERD (gastroesophageal reflux disease) Anxiety and depression Surgical History H/O colonoscopy Hx of arthroscopy of right knee Family History Father Liver failure Diabetes Mother Colon cancer Other Mental health disorder Substance use disorder Social History Housing: House Alcohol intake: former Patient Tobacco Use Status: Former Tobacco user Tobacco use type: Cigarette Years Smoked: 16 years Substance Use Type: Marijuana service: Yes Current occupational status: employed 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 1. Little interest or pleasure in doing things: several days 2. Feeling down, depressed, or hopeless: not at all 3. Trouble falling or staying asleep, or sleeping too much: several days 4. Feeling tired or having little energy: not at all 5. Poor appetite or overeating: several days 6. Feeling bad about yourself - or that you are a failure or have let yourself or your family down: several days 7. Trouble concentrating on things, such as reading the newspaper or watching television: nearly every day 8. Moving or speaking so slowly that other people could have noticed. Or the opposite - being so fidgety or restless that you have been moving around a lot more than usual: more than half the days 9. Thoughts that you would be better off or of hurting yourself in some way: not at all Total score: 9 Depression Screening Interpretation: Positive Depression Screening Follow-up: Existing condition, New Medication prescribed and Other (Referral to psychiatrist and therapist at this time) Depression Screening Done: Yes 33678 - PHQ-9 Billing: Yes Source: Developed by Drs. Sascha Joseph, Liliana King, Bacilio Do and colleagues, with an educational selene from [employer]. Thrive Questionnaire Date Thrive assessed: 12/18/24 I am a: Patient What is your living situation today?: I have a steady place to live Within the past 12 months, did the food you bought not last and you didn't have the money to get more?: Never true Within the past 12 months, did you worry whether your food would run out before you got money to buy more?: Never true Do you have trouble paying for medicines?: No Do you have trouble getting transportation to medical appointments?: No Do you have trouble paying your heating and electricity bill?: No Do you have trouble taking care of your child, family member or friend?: No Do you have trouble with day-to-day activities such as bathing, preparing meals, shopping, managing finances, etc.?: No Are you currently unemployed and looking for a job?: No Are you interested in more education?: No Please select the resources that you would like help with: None THRIVE Score: 0 AUDIT C Alcohol Use Questionnaire (AUDIT-C) 1. How often do you have a drink containing alcohol?: Monthly or less Total Score: 1 Score Reviewed/Action Taken: No ISIDRO-7 AMB Questionnaire ISIDRO-7 Date ISIDRO - 7 assessed: 12/18/24 Feeling nervous, anxious, or on edge: 3 = Nearly every day Not being able to stop or control worryin = More than half the days Worrying too much about different things: 2 = More than half the days Trouble relaxin = Nearly every day Being so restless that it is hard to sit still: 3 = Nearly every day Becoming easily annoyed or irritable: 3 = Nearly every day Feeling afraid as if something awful might happen: 1 = Several days Total ISIDRO-7 score (0-4 normal; 5-9 mild; 10-14 moderate; 15-21 severe): 17 Source: Developed by Drs. Sascha Joseph, Liliana King, Bacilio Do and colleagues, with an educational selene from [employer]. ISIDRO-7 Assessment Billing ISIDRO-7 Assessment Tool: ISIDRO-7 Assessment 29769 Review of Systems Const Details: - Cardiovascular: Denies chest pain, reports dizziness upon standing - Neurological: Reports tinnitus, denies headaches - Psychiatric: Reports anxiety and depression, denies suicidal ideation - Endocrine: Reports feeling cold upon waking, denies other symptoms All systems reviewed & are unremarkable except as noted in HPI and below Physical exam (Primary Care) Vital Signs: Last Vital Signs Temp 97.5 F 12/18/24 08:52 Pulse 72 12/18/24 08:52 BP 140/87 H 12/18/24 08:52 Pulse Ox 95 12/18/24 08:52 Oxygen Delivery Method Room Air 12/18/24 08:52 Care Plan Goal for BP management: <140/90 at Goal BMI result Body Mass Index 28.4 BMI Assessment/Plan discussion: High BMI High, discussed plan: lifestyle, weight reduction, dietary, physical activity, alcohol moderation and other Tobacco/Smoking Status: Tobacco use Status Tobacco use date assessed 12/18/24 12/18/24 08:54 Patient Tobacco Use Status Former Tobacco user 12/18/24 08:54 Tobacco use type Cigarette 12/18/24 08:54 PHQ-9: PHQ-9 Score PHQ-9: Total score 9 12/18/24 09:05 Depression Screening Interpretation: Positive Depression Screening Follow-up: Existing condition, New Medication prescribed and Other (Referral to psychiatrist and therapist at this time) Thrive Assessment: Date of Thrive Assessment Date Thrive assessed 12/18/24 12/18/24 08:54 Const Other: Appearance: Alert. Oriented X3. No acute distress. Head: Normal external exam. Normocephalic. Atraumatic. Eyes: Pupils are equal, round, and reactive to light. Extraocular movements intact. Conjunctiva and sclera normal. Eyelids normal. Ears: External auditory canal normal. Tympanic membranes normal. Patient reports tinnitus and hearing loss; referral for hearing test recommended. Throat: Pharynx normal. Uvula midline. Moist mucous membranes. Neck: Normal inspection. Neck supple. Full range of motion. No adenopathy. Thyroid Normal. Possible left thyroid nodule noted; ultrasound ordered. Cardiovascular: Normal heart rate and rhythm. Heart sound normal. No murmurs noted. Pulses normal throughout. Blood pressure slightly elevated at 127/88. Respiratory: No respiratory distress. Painless inspiration. Breath sounds normal. No wheezes/rales/rhonchi noted. Chest nontender. No accessory muscle usage noted or decreased air movement noted. Abdomen: Soft and nontender. Bowel sounds normal in all 4 quadrants. No distention noted. No organomegaly noted. No visible injury noted. Back: No costovertebral angle tenderness. Full range of motion noted. Skin: Skin warm and dry. Normal skin color. Normal skin turgor. No rashes/lesions/lacerations noted. Extremities: No lower extremity edema. Extremities exhibit normal range of motion. Extremities nontender. Neuro: Oriented X 3. No motor deficit. No sensory deficit. Reflexes normal. Reports intermittent dizziness and history of head injury with residual numbness on the left side of the head; CT scan of the head ordered. Office Procedures Flu Questionnaire Does the patient have a severe egg allergy?: No Does the patient have severe life threatening allergies?: No Does the patient have a fever or illness today?: No Has the patient ever had Guillain-[place] Syndrome?: No Has the patient ever had any past reaction to a flu shot?: No Immunizations Fluarix [id number] (PF) 45 mcg (15 mcg x 3)/0.5 mL IM syringe Performing Provider: Gabrielle Amador PA-C [place] [facility] [place] [facility] Documented (not given) by: Keke Cheema CMA on 12/18/24 09:06 Reason Not Given: Patient Refused Coding Level of Care Code New Pt Level 4 (55889) New Pt Prev Care 40-64y(54411) Diagnoses Annual physical exam Z00.00 Anxiety F41.9 Depression F32.A History of prostatitis Z87.438 Ringing in ears H93.19 Dizziness R42 Thyroid nodule E04.1 Family history of colon cancer Z80.0 Family history of diabetes mellitus Z83.3 History of head injury Z87.828 Alcohol use disorder in remission F10.91 Additional Codes PHQ-9 - 32869 - PHQ-9 Billing: Yes ([id number]) ISIDRO-7 Assessment Billing - ISIDRO-7 Assessment Tool: ISIDRO-7 Assessment 85662 ([id number]) Time Spent (min) 60 Assessment & Plan Assessment & Plan (1) Annual physical exam: Code(s): Z00.00 - Encounter for general adult medical examination without abnormal findings Category: Medical (2) Anxiety: Code(s): F41.9 - Anxiety disorder, unspecified Category: Medical Plan: The patient will be referred to a psychiatrist for further evaluation and management of anxiety. In the interim, a prescription for diazepam 10 mg to be taken twice daily as needed has been provided. (3) Depression: Code(s): F32.A - Depression, unspecified Category: Medical Plan: The patient will be referred to a psychiatrist for further evaluation and management of depression. (4) History of prostatitis: Code(s): Z87.438 - Personal history of other diseases of male genital organs Category: Medical Plan: The patient has a history of prostate infection, which was previously treated. (5) Ringing in ears: Code(s): H93.19 - Tinnitus, unspecified ear Category: Medical Plan: The patient will be referred for a hearing evaluation to assess the tinnitus. (6) Dizziness: Code(s): R42 - Dizziness and giddiness Category: Medical Plan: The patient reports dizziness upon standing, which may be related to a past head injury. A CT scan of the head will be ordered to rule out any intracranial abnormalities. (7) Thyroid nodule: Code(s): E04.1 - Nontoxic single thyroid nodule Category: Medical Plan: An ultrasound of the thyroid will be ordered to evaluate the possible thyroid nodule. (8) Family history of colon cancer: Comment: Mother still alive in her 80s was diagnosed in her 60s Uncle paternal still alive in his 40s was diagnosed Code(s): Z80.0 - Family history of malignant neoplasm of digestive organs Category: Medical Plan: The patient has a family history of colon cancer, and a colonoscopy will be considered based on previous findings and timing. (9) Family history of diabetes mellitus: Code(s): Z83.3 - Family history of diabetes mellitus Category: Medical Plan: The patient has a family history of diabetes mellitus type 2, and screening for diabetes will be conducted. (10) History of head injury: Code(s): Z87.828 - Personal history of other (healed) physical injury and trauma Category: Medical Plan: The patient reports a history of head injury with residual symptoms of dizziness and tinnitus. (11) Alcohol use disorder in remission: Code(s): F10.91 - Alcohol use, unspecified, in remission Category: Medical Plan: The patient has a history of alcohol use disorder, currently in remission for over two years. Plan Plan Patient was informed and verbally consented to the use of an ambient scribe for clinic note documentation during this visit. 1. Anxiety The patient will be referred to a psychiatrist for further evaluation and management of anxiety. In the interim, a prescription for diazepam 10 mg to be taken twice daily as needed has been provided. 2. Depression The patient will be referred to a psychiatrist for further evaluation and management of deprression/anxiety. 3. Prostate Infection The patient has a history of prostate infection, which was previously treated. 4. Tinnitus The patient will be referred for a hearing evaluation to assess the tinnitus. 5. Dizziness The patient reports dizziness upon standing, which may be related to a past head injury. A CT scan of the head will be ordered to rule out any intracranial ab normalities. 6. Possible Thyroid Nodule An ultrasound of the thyroid will be ordered to evaluate the possible thyroid nodule. 7. Family History Of Colon Cancer The patient has a family history of colon cancer, and a colonoscopy will be considered based on previous findings and timing. 8. Family History Of Diabetes Mellitus Type 2 The patient has a family history of diabetes mellitus type 2, and screening for diabetes will be conducted. 9. History Of Head Injury The patient reports a history of head injury with residual symptoms of dizziness and tinnitus. 10. Alcohol Use Disorder In Remission The patient has a history of alcohol use disorder, currently in remission for over two years. During the visit, I discussed with the patient the management of his anxiety and depression, emphasizing the importance of psychiatric evaluation and the interim use of diazepam. We also reviewed the need for further evaluation of his tinnitus and possible thyroid nodule, with referrals for a hearing test and thyroid ultrasound. I advised the patient on the importance of monitoring his blood pressure and the potential impact of anxiety on his readings. Orders: Orders Hemoglobin A1c Today Z00.00 - Encounter for general adult medical examination without abnormal findings C Reactive Protein Today Z00.00 - Encounter for general adult medical examination without abnormal findings Complete Blood Count Auto Diff Today Z00.00 - Encounter for general adult medical examination without abnormal findings Erythrocyte Sedimentation Rate Today Z00.00 - Encounter for general adult medical examination without abnormal findings Liver Panel Today Z00.00 - Encounter for general adult medical examination without abnormal findings Lipid Panel Today Z00.00 - Encounter for general adult medical examination without abnormal findings UA CC w/rflx Micro + Cult Today Z00.00 - Encounter for general adult medical examination without abnormal findings Vitamin D 25-OH Total Today Z00.00 - Encounter for general adult medical examination without abnormal findings Testosterone, Free/Total Today Z00.00 - Encounter for general adult medical examination without abnormal findings DHEA Sulfate Today Z00.00 - Encounter for general adult medical examination without abnormal findings Influenza [id number] Immunization Today Z23 - Encounter for immunization Comprehensive [place]. Panel Fast Today Z00.00 - Encounter for general adult medical examination without abnormal findings Magnesium Today Z00.00 - Encounter for general adult medical examination without abnormal findings PSA,Total (Free>4and<10) Today Z00.00 - Encounter for general adult medical examination without abnormal findings TSH reflex Free T4 Today Z00.00 - Encounter for general adult medical examination without abnormal findings Vitamin B12 and Folate Today Z00.00 - Encounter for general adult medical examination without abnormal findings US thyroid Today E04.1 - Nontoxic single thyroid nodule CT head/brain wo IV con Today H93.19 - Tinnitus, unspecified ear, R42 - Dizziness and giddiness Dihydrotestosterone Today Z00.00 - Encounter for general adult medical examination without abnormal findings Referrals Counseling Referral F41.9 - Anxiety disorder, unspecified Speech and Hearing Referral H93.19 - Tinnitus, unspecified ear Psychiatry Referral F41.9 - Anxiety disorder, unspecified Psychiatry Outpatient Consultation Service F41.9 - Anxiety disorder, unspecified Medications: New diazepam (Valium) 10 mg PO BID PRN 60 tabs 0RF anxiety Patient Instructions: - Take diazepam 10 mg twice daily as needed for anxiety, but avoid alcohol and operating heavy machinery. - Schedule and attend appointments with a psychiatrist and for a hearing evaluation. - Monitor blood pressure at home and report any significant changes. - Follow up for thyroid ultrasound and CT scan of the head as scheduled. - Maintain a healthy lifestyle and continue abstaining from alcohol.
--- OUTSIDE RECORDS SUMMARY | 2024-12-18 09:18 | XMS_ITS | Clinical Summary ---
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
[2024-12-18 09:41] VITALS: BP 127/88; PULSE 73
== END 2024-12-18 09:38 | disposition home or self-care (01) ==
PROVIDERS: PCP Physician Assistant Medical; Visit Provider Physician Assistant Medical
DX: Z00.00 Encounter for general adult medical examination without abnormal findings (principal); F41.9 Anxiety disorder, unspecified; H93.13 Tinnitus, bilateral; F32.A Depression, unspecified; R42 Dizziness and giddiness; Z87.438 Personal history of other diseases of male genital organs; E04.1 Nontoxic single thyroid nodule; Z80.0 Family history of malignant neoplasm of digestive organs; Z83.3 Family history of diabetes mellitus; Z87.828 Personal history of other (healed) physical injury and trauma; F10.91 Alcohol use, unspecified, in remission

== ENCOUNTER → 2024-12-18 08:49 | Outpatient (BNVA) | payer OTHER, SELFPAY | PROVIDERS: PCP Physician Assistant Medical; Visit Provider Physician Assistant Medical | DX: Z00.00 Encounter for general adult medical examination without abnormal findings (principal); F41.9 Anxiety disorder, unspecified; F32.A Depression, unspecified; H93.19 Tinnitus, unspecified ear; R42 Dizziness and giddiness; E04.1 Nontoxic single thyroid nodule; F10.91 Alcohol use, unspecified, in remission; Z87.828 Personal history of other (healed) physical injury and trauma; Z28.21 Immunization not carried out because of patient refusal; Z87.438 Personal history of other diseases of male genital organs; Z80.0 Family history of malignant neoplasm of digestive organs; Z83.3 Family history of diabetes mellitus | CPT/HCPCS: 96127; 99202; 99386 ==

== ENCOUNTER 2024-12-22 08:16 | Outpatient (REF) | payer OTHER, SELFPAY ==
[2024-12-22 10:46] LABS: MANUAL DIFF FLAG NO
[2024-12-22 10:50] LABS: Hematocrit 44.4 % (42.0-52.0); Hemoglobin 14.8 g/dl (14.0-18.0); Imm Gran Abs Auto 0.02 X10*3/uL (0.00-0.03); Imm Gran Pct Auto 0.3 % (0.0-0.4); Lymphocytes Absolute Auto 2.6 X10*3/uL (1.2-4.9); Mean Corpuscular HGB Conc 33.3 g/dl (31.0-36.0); Mean Corpuscular Hemoglobin 30.5 pg (27.0-33.0); Mean Corpuscular Volume 91.5 fL (80.0-98.0); NRBC Abs Auto 0.000 X10*3/uL (0.0-0.012); NRBC Pct Auto 0.0 /100WBC (0.0-0.2); Platelet Count 222 X10*3/uL (160-400); Red Blood Count 4.85 X10*6/uL (4.60-5.80); White Blood Count 7.5 X10*3/uL (4.8-10.8)
[2024-12-22 11:29] LABS: PSA,Total (Free>4and<10) 0.52 ng/mL (0.00-4.00)
[2024-12-22 11:52] LABS: Folate 8.7 ng/mL (> or = 4.0); Vitamin B12 703 pg/mL (200-900)
[2024-12-22 13:02] LABS: Alanine Aminotransferase 27 U/L (0-40); Albumin Level 4.6 g/dL (3.5-5.0); Alkaline Phosphatase 58 U/L (39-117); Anion Gap 9 (12-20); Aspartate Amino Transferase 26 U/L (5-37); Blood Urea Nitrogen 15 mg/dL (9-16); Calcium 9.0 mg/dL (8.4-10.2); Carbon Dioxide 27 mmol/L (22-29); Chloride 109 mmol/L (96-108); Cholesterol 279 mg/dL (<200); Estimated Glomerular Filt Rate > 60; HDL Cholesterol 42 mg/dL (>40); Magnesium 2.3 mg/dL (1.6-2.6); Potassium 3.9 mmol/L (3.3-5.1); Sodium 141 mmol/L (135-145); Total Protein 7.4 g/dL (6.5-8.0); Triglycerides 330 mg/dL (<150)
[2024-12-26 19:04] LABS: Testosterone, Free 79.4 pg/mL (35.0-155.0)
== END 2024-12-22 08:17 | disposition home or self-care (01) ==
LOC: HO.HMGCLDS 08:16
PROVIDERS: PCP Physician Assistant Medical; Visit Provider Physician Assistant Medical
DX: Z00.00 Encounter for general adult medical examination without abnormal findings (principal)
CPT/HCPCS: 36415; 80053; 80061; 80076; 82306; 82607; 82627; 82642; 82746; 83036; 83735; 84153; 84402; 84403; 84443; 85025; 85652; 86140

== ENCOUNTER 2025-01-01 15:00 | Outpatient (REF) | payer OTHER, SELFPAY ==
--- NOTE | ~2025-01-01 | US_ITS ---
EXAMINATION: US THYROID HISTORY: E04.1 - Nontoxic single thyroid nodule TECHNIQUE: Real-time grayscale ultrasound imaging was performed and images were reviewed. COMPARISON: There are no prior studies available for comparison. FINDINGS: SIZE: The right thyroid lobe measures 4.4 x 1.3 x 1.6 cm. The left thyroid lobe measures 4 x 1 x 1.3 cm cm. The isthmus measures 0.2 mm. FLOW: Flow to the gland may be slightly increased. ECHOGENICITY: The echotexture of the gland is normal. NODULES: No nodules. Prominent bilateral lymph cervical lymph nodes measuring 1.6 and 1.8 cm in transverse dimension on the right and 2.7 cm on the left. These demonstrate cortical thickening and slitlike hilum. These demonstrate normal hilar flow. These may be reactive. US/US thyroid IMPRESSION: Thyroid vascularity may be slightly increased otherwise unremarkable thyroid ultrasound. No thyroid nodule. Prominent bilateral cervical lymph nodes measuring up to 2.7 cm with cortical thickening and slitlike hilum. These may be reactive. Cannot exclude malignancy/lymphoproliferative disease. Short-term follow-up ultrasound imaging in several months recommended. Electronically signed by: Tiffany Hunter MD 01/01/2025 05:08 PM EDT
--- OUTSIDE RECORDS SUMMARY | 2025-01-01 15:22 | XMS_ITS | Clinical Summary ---
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
== END 2025-01-01 15:01 | disposition home or self-care (01) ==
LOC: HO.US 15:00
PROVIDERS: PCP Physician Assistant Medical; Visit Provider Physician Assistant Medical
DX: E04.1 Nontoxic single thyroid nodule (principal)
CPT/HCPCS: 76536

== ENCOUNTER → 2025-01-01 15:02 | Outpatient (BNV) | payer OTHER, SELFPAY | PROVIDERS: PCP Physician Assistant Medical; Visit Provider Radiology Diagnostic Radiology | DX: E04.1 Nontoxic single thyroid nodule (principal) | CPT/HCPCS: 76536 ==